=== PATIENT | female | born 1945 | race Caucasian/White ===

== ENCOUNTER 2025-01-16 17:27 | Inpatient (IN) | payer MEDICARE, SELFPAY ==
[2025-01-16] VITALS (13 sets, daily range): BP systolic 93–123; BP diastolic 48–71; PULSE 78–96; BMI 30.5; BMI 28.2
--- NOTE | 2025-01-16 13:15 | ED.GENMED ---
History of Present Illness
General
Chief Complaint: Abnormal Lab Value
Source: patient
Exam Limitations: none
Time Seen by Provider: 01/16/25 13:06
History of Present Illness
History of Present Illness:
79-year-old female presents with abnormal labs from her primary physician. She states she has felt weak and off for weeks if not longer. Also has had hematuria for about a week. No dysuria or frequency. No abdominal pain. No fever or chills.
Labs showed a significant drop in hemoglobin elevation in creatinine. She noted blood in her urine but not noted any rectal bleeding
Past History
Past History
ED Past Medical History: Arrthythmia, CAD, CHF, HTN and Hypercholesterolemia
ED Past Surgical History: Cardiac, Cholecystectomy and Orthopedic
Review of Systems
Review of Systems
All Other Systems: Not applicable
Constitutional: Denies fever or chills
Respiratory: Reports no symptoms
Cardiac: Reports no symptoms
Phy Exam
Physical Exam
Physical Exam:
GENERAL: Alert and oriented in no apparent distress
EYE: Orbits normal.
NECK: Supple
CARDIAC: Regular rate and rhythm without any obvious murmurs. Pacemaker
LUNGS: Clear breath sounds,normal
ABDOMEN: Soft, without focal tenderness or distention. Small amount of bright red blood around the rectal area. Stool is relatively brown but test positive.
NEUROLOGICAL: Alert and oriented , grossly non-focal
SKIN: Warm and dry, no rash or lesion, no discoloration, skin intact.
MUSCULOSKELETAL: No edema,no deformity.Good color
PSYCH: Normal and appropriate interaction.
Course
Orders/Labs/Results
Orders:
Orders
01/16/25 13:14
Electrocardiogram (*1) Stat
Reason for Study: Other
Other Reason for Exam: GI Bleed
CT Abd/pel Without Iv Or Oral Urgent
Comment:
Reason For Exam: Hematuria/renal failure
Cardiac Monitoring- Treatment ONCE
EKG- Treatment ONCE
IV Insert/Care/Rem.- Treatment PRN
01/16/25 13:31
Type+Screen Urgent
Complete Blood Count/With Diff Urgent
Comprehensive Metabolic Panel Urgent
Ferritin Urgent
Comment: ADD ON
Folate Urgent
Comment: ADD ON
Iron Urgent
Comment: ADD ON
Total Iron Binding Urgent
Comment: ADD ON
Vitamin B12 Urgent
Comment: ADD ON
01/16/25 14:41
Urinalysis Reflex To Culture Urgent
Date Specimen was Collected: 01/16/25
Time Specimen was Collected: 14:40
Urine Creatinine Urgent
Date Specimen was Collected: 01/16/25
Time Specimen was Collected: 14:40
Comment: ADD ON
Urine Sodium Urgent
Date Specimen was Collected: 01/16/25
Time Specimen was Collected: 14:40
Comment: ADD ON
01/16/25 Dinner
Clear Liquid
At Your Request: Full Participation
Does patient need a safe tray?: No
01/16/25 15:59
Pantoprazole [Protonix IV] 40 mg IV NOW STA
01/16/25 16:21
0.9% Sodium Chloride 500 ml [Nss] 500 ml IV BOLUS
01/16/25 16:47
Admit/Transfer Patient As Directed
Co-Sign Provider:
Level of Care: Inpatient admission
Assign to:: Telemetry
Physician / Group: Hospitalist
Diagnosis: Anemia/GI-bleed/MERYL
Reason for Telemetry: Arrhythmia
Date to Stop Telemetry: 01/19/25
Time to Stop Telemetry: 11:00
Reason for Hospitalization: Anemia/GI-bleed/MERYL
Expected length of stay greater than two midnights?: Yes
ELOS- Estimated Length of Stay in days: 3
I certify the patient meets the requirements for IP care: Yes
PRN Pain Medication Management As Directed
May give lesser potent ordered pain med per pt: Yes
preference::
Protocol:: Medication orders for pain may be administered in a
manner that supports deferring to patient preference
when the pt is:
- Requesting an ordered lesser potent pain medication.
Least to most potent pain medications are defined
as: acetaminophen < NSAID < tramadol < opioids
(morphine, oxycodone, hydromorphone).
- Requesting a lesser dose of the same medication IF
ORDERED.
- Requesting a less intrusive route of administration
if both routes are prescribed by the provider (PO <
IV).
01/16/25 17:00
Code Status As Directed
Resuscitation Status: Do not resuscitate
Reached after discussion with pt or family/Healthcare POA: Yes
DNR Bracelet Application ONCE
01/16/25 17:04
Add On- LAB Urgent
Tests Added?: TIBC, ferritin, iron saturation, B12, folate, urine Na, urine Cr
01/16/25 17:05
Blood Bank Products [* Blood Bank Products] Urgent
Blood Bank Products: *Packed RBC Leuko(PRBC's)
Quantity: 1
Transfuse Today: Yes
Reason: Anemia
01/16/25 19:21
0.9% Sodium Chloride 1000 ml [Nss] 1,000 ml IV 100 mls/hr
01/16/25 19:21
GASTROINTESTINAL CONSULT Routine
Consulting Provider: Chris Berry
Was physician already notified: Yes
Activity As Directed
Activity Level: Out of Bed-Early Mobility
INT (Intravenous Needle Therapy) As Directed
Comment: Place 2 IV catheters of the largest bore possible until stable
Orthostatic Vital Signs As Directed
Orthostatic VS Frequency: Now
Comment: then every four hours for twenty-four hours
Pneumatic Compression Sleeves As Directed
Type: Knee high
Vital Signs As Directed
Frequency: Per unit guidelines
DX Deep Vein Thrombosis Video Routine
01/16/25 20:00
Metoprolol Xl [Toprol Xl] 25 mg PO QPM
01/16/25 22:00
Amiodarone [Pacerone] 200 mg PO HS
Atorvastatin [Lipitor] 40 mg PO HS
Pantoprazole [Protonix IV] 40 mg IV BID
Ropinirole [Requip] 0.5 mg PO HS
01/17/25 04:13
Complete Blood Count/With Diff IN AM
Comprehensive Metabolic Panel IN AM
01/17/25 Breakfast
NPO
Allow oral meds: Yes
Allow clear liquids: Sips of Clears
01/17/25 08:00
Aspirin Low Dose EC [Aspir Low (Enteric Coated)] 81 mg PO DAILY
Calcium Carbonate/Vitamin D3 [Oscal 500 + D] 500 mg PO DAILY
Ezetimibe [Zetia] 10 mg PO DAILY
01/19/25 11:00
DC Protocol for Telemetry ONCE
Abnormal Lab Results
01/16/25 01/16/25
13:31 14:41
RBC 3.13 L 10^6/uL
(4.20-5.40)
Hgb 8.3 L g/dL
(12.0-16.0)
Hct 25.9 L %
(37.0-47.0)
MCH 26.5 L pg
(27.0-31.0)
MCHC 32.0 L g/dL
(33.0-37.0)
RDW 15.8 H %
(11.5-14.5)
MPV 10.7 H fL
(7.4-10.4)
Abs Immat Gran (auto) 0.1 H 10^3/uL
(0-0.05)
Absolute Lymphs (auto) 0.8 L 10^3/uL
(1.2-3.4)
Absolute Monos (auto) 0.9 H 10^3/uL
(0.1-0.6)
Immature Gran % 0.8 H %
(0-0.5)
Lymphocytes % 13.1 L %
(20.5-51.1)
Monocytes % 13.9 H %
(1.7-9.3)
BUN 62 H mg/dl
(7-17)
Creatinine 3.5 H mg/dL
(0.6-1.0)
Glucose 116 H mg/dl
(70-99)
Iron 25 L ug/dl
(37-170)
% Saturation 6 L %
(20-50)
Vitamin B12 > 1000 H pg/ml
(239-931)
Urine Glucose 2+ A
(Negative)
Crossmatch IS Only See Detail
01/16/25 13:31
01/16/25 13:31
Vital Signs
Initial and Last Documented VS:
Initial Vital Signs
Temp Pulse Resp BP Pulse Ox
98.1 F 98 20 104/65 98
01/16/25 12:05 01/16/25 12:05 01/16/25 12:05 01/16/25 12:05 01/16/25 12:05
Last Documented Vital Signs
Temp Pulse Resp BP Pulse Ox
98.5 F 72 18 108/57 95
01/17/25 03:54 01/17/25 04:55 01/17/25 03:54 01/17/25 04:55 01/17/25 03:54
MDM/Problems Addressed
Differential Diagnosis Includes:
Patient with anemia/new renal insufficiency. Describing hematuria. There may be a GI bleed also. Workup in progress.
*Radiology
Radiology exam reviewed: radiology read reviewed (No obstructing renal stone. No renal mass. Diverticulosis. Hiatal hernia. Bronchiectasis)
*Pulse Oximetry
SaO2: 98
Oxygen Mode of Delivery: Room air
Patient hypoxic: no
*EKG
Interpreted by ED Provider?: Yes
Interpretation: abnormal
Heart Rate: 77
Rate: normal
Rhythm: other
[place]: left axis deviation
QRS Pattern: wide non-specific
Ischemia: non-specific ST changes
*Critical Care Note
Total Time (30-74mins, 75-104mins- exclusive of procedures): Not Applicable
Data Reviewed
Review of Other/Old Records Reveals: Labs, Records and Testing
Update Note
Update Note:
Patient with GI bleed, new renal insufficiency. Inpatient management
ED Attending Note
-
Portions of this chart may have been created with voice recognition software.� Occasional wrong word or��sound alike� substitutions may have occurred due to the inherent limitations of voice recognition software.
Discharge Plan
Departure
Patient Disposition: Admit
Date of Disposition: 01/16/25
Time of Disposition: 16:20
Presentation/result/management discussed w/ accepting MD/DO: Hospitalist
Discharge Problem:
New onset early renal failure, Anemia/GI bleed
Interventions
Interventions:
*Risk Screen - Suicide Last Done: 01/16/25 20:47
*General Assessment Last Done: 01/16/25 12:05
*Neglect/Abuse Screening Last Done: 01/16/25 12:05
*ED- Fall Risk Assessment Last Done: 01/16/25 13:28
*ED COVID-19 Vaccine History Last Done: 01/16/25 13:28
*Nursing Disposition Last Done: 01/16/25 19:10
Discharge Date and Time
Discharge Date/Time: 01/16/25 19:10
[2025-01-16 14:01] LABS: Hematocrit 25.9 % (37.0-47.0); Hemoglobin 8.3 g/dL (12.0-16.0); Mean Corp Hgb Conc. 32.0 g/dL (33.0-37.0); Mean Corpuscular Volume 82.7 fL (81.0-99.0); Nucleated Red Blood Cells % 0 %; Platelet Count 343 10^3/uL (130-400); Red Cell Dist. Width 15.8 % (11.5-14.5)
[2025-01-16 14:24] LABS: ALT (SGPT) 28 U/L (0-35); AST (SGOT) 35 U/L (14-36); Albumin 4.3 g/dl (3.5-5.0); Alkaline Phosphatase 102 U/L (38-126); Blood Urea Nitrogen 62 mg/dl (7-17); Calcium 10.2 mg/dl (8.4-10.2); Carbon Dioxide 25 mmol/L (22-30); Chloride 100 mmol/L (98-107); Estimated Creatinine Clearance 14 ml/min; Glucose 116 mg/dl (70-99); Potassium 4.9 mmol/L (3.5-5.1); Sodium 136 mmol/L (135-145); Total Protein 7.4 g/dl (6.3-8.2); eGFR 12.67
[2025-01-16 15:01] LABS: Urine Character Clear (Clear)
[2025-01-16] MEDS: PROTONIX IV 40 MG IV ×2 (16:14→21:36)
[2025-01-16] MEDS: NSS 500 IV (16:25)
--- NOTE | 2025-01-16 16:41 | W.PN.UPDATE ---
Update Note
Progress Note Update
79-year-old female with HFpEF, CAD s/p PCI, AF on Eliquis s/p PVI, hypertension, dyslipidemia, CKD 3, AVB s/p PPM, H/O CVA presenting to the hospital today with abnormal labs. Symptomatically is complained of weakness, generalized for weeks, has
also reported hematuria for the last 1 week though denies any dysuria, frequency, abdomen pain, fevers or chills. Labs today showed a significant drop in hemoglobin as well as elevated creatinine. Denies any known rectal bleeding or melena. AFVSS
upon arrival. Labs with hemoglobin 8.3, creatinine 3.5. UA without blood or signs of infection. CT A/P without contrast with diverticulosis without signs of inflammation, moderate hiatal hernia, no signs of hydronephrosis. ECG without ischemic
findings, atrial paced rhythm. Was started on IV pantoprazole and given 500 mL of IV fluids in the ED. heme positive stool
AAO x 4, NAD. Benign cardiopulmonary exam. Nontender abdomen, normal bowel sounds, nondistended. No edema, palpable pulses. Skin is warm and dry, no rashes. No focal neurologic deficits
ABLA from likely GI source, possibly diverticular versus UGI source with elevated BUN. Symptomatic anemia. Heme positive stool. Hemoglobin baseline near 10-11, 8.5 on CBC in the ED. Started on IV PPI. Will continue with IV PPI twice daily for
now and consult GI for possible scope. Hold home Eliquis. Continue with aspirin as she had PCI but will discontinue if bleeding worsens or blood counts continue to drop. Order 1 unit PRBC now with type and crossmatch, blood consent. Continue to
trend CBC and transfuse for hemoglobin <7 or symptoms associated with anemia. Add on iron studies, B12 and folate, retake count to ED labs prior to blood transfusion
MERYL on CKD. Baseline creatinine near 1.5, likely CKD 3. Creatinine here 3.5. Suspect prerenal etiology with bleeding though cannot rule out intrinsic cause. No signs of hydronephrosis on CT. Add on urine sodium, urine creatinine to ED urine
sample to calculate FE(Na). Blood products as above, maintenance IV fluids. Trend BMP, hold home diuretics, avoid nephrotoxins.
Subjective gross hematuria. Question if this was actually from a GI source. UA here without any signs of gross or microscopic hematuria. Will continue to monitor and consider urology consult if gross hematuria recurrent
Allergies. Had anaphylactic-like response to iodinated CT contrast in the past, cough response with YVETTE inhibitors. Also with anaphylaxis to shellfish. Avoid the substances, EpiPen if needed
Clear liquid diet, n.p.o. at midnight
SCDs
I will be admitting Samaria Boyle to telemetry. She is at high risk for worsening morbidity due to blood loss anemia and renal insufficiency. She will require intensive monitoring of her BMP and CBC, readjustment of her anticoagulation regimen,
and possible intervention by GI. I have discussed this case with the ED attending and the bottle hop. I have also reviewed the case with the resident and agree with all documentation unless otherwise specified.
Please refer to resident H&P for more detail if needed
--- NOTE | 2025-01-16 17:10 | HPS.HSE ---
Family Physician
-
Family Physician: Ayaka Paz
Chief Complaint
-
lightheadedness, blood in toilet
History of Present Illness
79 yo F PMH atrial fibrillation, CAD s/p stents, CHF, HTN, HLD, and b/l hip replacements who is presenting with lightheadedness, dizziness, dyspnea on exertion for 1 week duration.
She also reports blood in stool. She denies chest pain, palpitation, or lower extremity swelling. She denies any new medications or changes in medications.
She went to an outpatient visit yesterday and was told that her lab values were abnormal and advised to present to ER.
In the ED, initial VS were afebrile, HR 98, RR 20, BP 104/65, and 98% on RA. EKG showed atrial paced rhythm. CT AP noncontrast showed diverticulosis without diverticulitis, no renal calculus, no obstruction.
Labs n/f BUN 62 and Cr 3.5. In the ED, hemeoccult stool testing was positive.
Last echo per our records is in 2016 with EF 50%. She principally follows at [facility].
Medical History
Past Medical History
Past Medical History: Reports Arrhythmia, CAD, CHF, HTN and Hypercholesterolemia
Past Surgical History: Reports Orthopedic (b/l hip replacement)
Social History
Tobacco: Non-smoker
Alcohol: None
Drug: None
Family History
Family History: Not pertinent
Allergies / Home Medications
Allergies reflects when Allergies were last updated in [employer].
Home Medications with original date entered in [employer]
Allergy/Medication List:
Allergies
Allergy/AdvReac Type Severity Reaction Status Date / Time
YVETTE Inhibitors Allergy cough Verified 01/16/25 12:10
acetaminophen (From Allergy Unknown Verified 01/16/25 12:10
Darvocet-N)
duloxetine HCl (From Allergy Unknown Verified 01/16/25 12:10
Cymbalta)
Iodinated Contrast Media Allergy throat Verified 01/16/25 12:10
(Iodinated Contrast Media - closing
IV Dye)
latex Allergy Rash Verified 01/16/25 12:10
oxycodone Allergy hallucinati Verified 01/16/25 12:10
ons
penicillin V potassium (From Allergy Unknown Verified 01/16/25 12:10
Pen-Vee K)
pregabalin (From Lyrica) Allergy Unknown Verified 01/16/25 12:10
propoxyphene napsylate (From Allergy Unknown Verified 01/16/25 12:10
Darvocet-N)
shellfish derived Allergy Anaphylaxis Verified 01/16/25 12:10
Home Medications
ascorbic acid (vitamin C) 500 mg tablet (Vitamin C) 500 mg PO DAILY 07/21/15
atorvastatin 40 mg tablet 40 mg PO HS 07/21/15
omega 3-ynn-dzo-fish oil 250 mg-500 mg-1,000 mg capsule 1 cap PO DAILY 07/21/15
metoprolol succinate 25 mg tablet,extended release 24 hr 25 mg PO QPM 02/23/16
apixaban 5 mg tablet (Eliquis) 5 mg PO BID ##1 03/28/16
amiodarone 200 mg tablet 200 mg PO HS 01/16/25
aspirin 81 mg tablet,delayed release 81 mg PO DAILY 01/16/25
calcium 500 mg (as carbonate)-vitamin D3 10 mcg (400 unit) tablet (Calcium 500 + D) 1 tab PO DAILY 01/16/25
cyanocobalamin (vitamin B-12) 1,000 mcg tablet 1,000 mcg PO DAILY 01/16/25
empagliflozin 10 mg tablet (Jardiance) 10 mg PO DAILY 01/16/25
ezetimibe 10 mg tablet (Zetia) 10 mg PO DAILY 01/16/25
furosemide 40 mg tablet (Lasix) 40 mg PO DAILY 01/16/25
ropinirole 0.5 mg tablet 0.5 mg PO HS 01/16/25
spironolactone 25 mg tablet 25 mg PO QPM 01/16/25
Review of Systems
-
History Source: Patient
Constitutional: Reports Fatigue
EENT: Reports No Symptoms
Respiratory: Reports No Symptoms
Cardiac: Reports No Symptoms
Abdomen/GI: Reports Bloody Stools
: Reports No Symptoms
Musculoskeletal: Reports No Symptoms
Skin: Reports No Symptoms
Neurological: Reports Dizzy
Physical Exam
Vital Signs
Vital Signs
Temp Pulse Resp BP Pulse Ox
98.1 F 77 16 104/65 98
01/16/25 12:05 01/16/25 14:15 01/16/25 14:15 01/16/25 12:05 01/16/25 13:18
Physical Exam
General: Comfortable
HEENT: NormoCephalic
Respiratory: Clear
Cardiac: Regular Rhythm and Other (no murmurs on my exam)
GI: Soft and Non Tender
Rectal: Hem Positive
Musculoskeletal: No Edema
Skin: Warm
Neuro: AO x 3 and Nonfocal/grossly intact
Psych: Calm
Laboratory Results
-
01/16/25 13:31
01/16/25 13:31
Laboratory Results
Total Bilirubin 1.3 mg/dl (0.2-1.3) 01/16/25 13:31
AST 35 U/L (14-36) 01/16/25 13:31
ALT 28 U/L (0-35) 01/16/25 13:31
Alkaline Phosphatase 102 U/L (38-126) 01/16/25 13:31
EKG: atrial paced rhythm
CT AP noncontrast:
IMPRESSION:
Pelvic assessment limited by dense streak artifact as a result of bilateral hip replacements. Consider further evaluation with ultrasound.
No renal calculus or hydronephrosis to indicate obstructive uropathy. No suspicious renal mass identified given limitations from lack of intravenous contrast.
Minor diverticulosis without acute diverticulitis. No bowel obstruction.
Moderate hiatal hernia. Peribronchial thickening and traction bronchiectasis at the lung bases. Progressive left atrial enlargement.
UA: 2+ glucose, negative for blood, negative albumin
[facility] medical records:
received 01/16/2025 AM from [facility] for labs on 01/15/2025
Hemoglobin: 7.9
BUN 63
Creatinine 3.95
Impression/Plan
-
In summary, this is 79 yo F p/w lightheadedness, dizziness, blood in stool for 1 week duration and found to be hemeoccult positive.
# Symptomatic anemia
# GI bleed
- dizziness, lightheadedness for 1 week duration with hemeoccult positive c/f GI bleed
- VS are within normal limits; HR in 70-90s; possible metoprolol succinate masking tachycardia
- Hgb 8.3 with symptoms
- the ddx for gi bleed is broad and includes several etiologies: diveritular bleed, angiodysplaisa, gastritis, ulcer bleed, colorectal malignancy
Plan:
- ensure adequate IV access x2
- IV fluids NS 100cc/hr
- type and cross
- transfuse 1u pRBC
- add on iron studies, b12, folate
- IV pantoprazole 40mg bid
- hold apixaban, continue aspirin 81mg
- diet: CLD npo @ midnight
- GI has been consulted for possible EGD and/or colonoscopy
- monitor VS, trend CBC
# MEYRL
- Cr 3.5
- BUN 62
- unclear creatinine baseline, potentially some element of CKD
- UA negative for blood
- likely etiology is multifactorial: prerenal with combination of GI bleed and dehydration/poor PO intake
Plan:
- IV fluids NS 100cc/hr and 1 unit pRBCs as above
- hold diuretics: SGLT2i, furosemide, spironolactone
- add on urine sodium, urine creatinine
- monitor BMP
# Chronic issues per below
# atrial fibrillation - holding apixaban as above; continue metoprolol succinate, continue amiodarone
# CAD - continue aspirin 81mg
# CHF, unclear type: holding diuretics as above
# HTN - holding diuretics as above
# HLD - continue atorvastatin
# restless leg syndrome - continue ropinorole
Diet: CLD, npo @ midnight
Code status: DNR
DVT ppx: SCDs
Disposition: admit to telemetry, pending further workup; attempt to access outside hospital medical records
--- NOTE | 2025-01-16 17:46 | EDRN ---
Resident Bianca messaged regarding need for blood consent. Blood ready at this time. RN unable to request blood as we yet do not have a consent.
[2025-01-16 17:56] LABS: Iron 25 ug/dl (37-170)
[2025-01-16 18:06] LABS: Total Iron Binding Capacity 393 ug/dl (265-497)
--- NOTE | 2025-01-16 18:12 | EDRN ---
Pt states that did come and have her sign a paper, and he would have it 'scanned in.' No consent on chart as of yet, unable to request blood.
[2025-01-16 18:33] LABS: Ferritin 15.7 ng/ml (11.1-264.0)
[2025-01-16 19:04] LABS: Folate 12.6 ng/ml (2.76-20); Vitamin B12 > 1000 pg/ml (239-931)
[2025-01-16] MEDS: TOPROL XL 25 MG PO (20:14)
[2025-01-16] MEDS: NSS 1000 IV (20:15)
[2025-01-16] MEDS: NSS (PRESERVATIVE FREE) 10 ML IV (21:36)
[2025-01-16] MEDS: REQUIP 0.5 MG PO (21:36)
[2025-01-16] MEDS: PACERONE 200 MG PO (21:38)
[2025-01-16] MEDS: LIPITOR 40 MG PO (21:41)
[2025-01-17] VITALS (12 sets, daily range): BP systolic 97–155; BP diastolic 47–79; PULSE 74–86
[2025-01-17 01:38] LABS: Hematocrit 26.3 % (37.0-47.0); Hemoglobin 8.4 g/dL (12.0-16.0)
--- NOTE | 2025-01-17 04:01 | W.PN.UPDATE ---
Update Note
Progress Note Update
-Patient had hematuria during the night, asymptomatic, bp 108/57, hr 72, RR 18, temp 98.5, SPO2 95% RA.
-Stat hgb is 8.3 previously 8.4 will continue monitoring h&h q 6hrs and transfuse as needed.
-Will hold aspirin.
-urology consult.
-Will maintain IVF
[2025-01-17 04:29] LABS: Hematocrit 25.7 % (37.0-47.0); Hemoglobin 8.3 g/dL (12.0-16.0)
[2025-01-17 04:35] LABS: Hematocrit 25.4 % (37.0-47.0); Hemoglobin 8.3 g/dL (12.0-16.0); Mean Corp Hgb Conc. 32.7 g/dL (33.0-37.0); Mean Corpuscular Volume 83.3 fL (81.0-99.0); Nucleated Red Blood Cells % 0 %; Platelet Count 273 10^3/uL (130-400); Red Cell Dist. Width 15.4 % (11.5-14.5)
[2025-01-17 04:53] LABS: ALT (SGPT) 24 U/L (0-35); AST (SGOT) 30 U/L (14-36); Albumin 3.4 g/dl (3.5-5.0); Alkaline Phosphatase 80 U/L (38-126); Blood Urea Nitrogen 56 mg/dl (7-17); Calcium 8.8 mg/dl (8.4-10.2); Carbon Dioxide 24 mmol/L (22-30); Chloride 109 mmol/L (98-107); Estimated Creatinine Clearance 17 ml/min; Glucose 98 mg/dl (70-99); Potassium 4.7 mmol/L (3.5-5.1); Sodium 138 mmol/L (135-145); Total Protein 6.0 g/dl (6.3-8.2); eGFR 17.29
--- NOTE | 2025-01-17 04:56 | PTCARENOTE ---
0400 Pt noted to have 500cc of Bloody urine. VS are followed T 98.5 HR 79 RR 18 BP 100/51 95% RA. Pt asymptomatic, with no complains of pain. YANELI Quiroz notified and was present to assess the patient, orders were placed, stat H&H and
Urology Consult added. Plan of care ongoing.
[2025-01-17] MEDS: NSS 1000 IV ×2 (05:54→17:25)
[2025-01-17 06:20] LABS: Glucose - Point of Care 102 mg/dl (70-99)
--- NOTE | 2025-01-17 07:14 | W.PN.HOSP.TC ---
Today's Communication/Plan
-
- f/u GI and urology recs
- monitor H&H
- tello cathter inserted
- continue IV fluids NS 100cc/hr
Assessment / Plan
Assessment / Plan
In summary, 79 yo F who is presenting with hemeoccult positive stool, hematuria, and symptomatic anemia.
# Symptomatic anemia
# Likely acute blood loss anemia
# Likely iron deficiency anemia
- dizziness, lightheadedness for 1 week duration with hemeoccult positive c/f GI bleed, and now hematuria
- VS are within normal limits; HR in 70-90s; possible metoprolol succinate masking tachycardia
- Hgb 8.4 even after 1u pRBC
- 01/17 10am hemoglobin 7.8
- etiology could be gi bleed and hematuria or combination of both
- iron studies c/w iron deficiency anemia (low ferritin, low iron, borderline low MCV); B12, folate normal
Plan:
- ensure adequate IV access x2
- continue IV fluids NS 100cc/hr
- transfuse 1 more unit pRBC; if c/f volume overload after transfusion, consider diuresis
- administer IV iron
- IV pantoprazole 40mg bid
- hold apixaban, aspirin is being held per overnight
- monitor VS, trend H&H
# GI bleed
- reported heme positive stool test per ED
- the overnight reports of hematuria are likely spillover from GI bleeding
- per urology exam, + blood in rectal vault
- the ddx for gi bleed is broad and includes several etiologies: diveritular bleed, angiodysplaisa, gastritis, ulcer bleed, colorectal malignancy
Plan:
- ensure adequate IV access x2
- continue IV fluids NS 100cc/hr
- monitor H&H
- GI has been consulted for possible EGD and/or colonoscopy
# MERYL
- Cr 2.7 from 3.5
- BUN 56 from 62
- unclear creatinine baseline, potentially some element of CKD
- UA negative for blood
- likely etiology is multifactorial: prerenal with combination of GI bleed and dehydration/poor PO intake
- FeNa 3.8% points towards intrinsic renal pathology however can be confounded by fluids administration.
Plan:
- IV fluids NS 100cc/hr
- hold diuretics: SGLT2i, furosemide, spironolactone
- tello catheter has been inserted, f/u UA+culture
- monitor BMP
# Chronic issues per below
# atrial fibrillation - holding apixaban as above; continue metoprolol succinate, continue amiodarone
# CAD - currently holding aspirin 81mg
# CHF, unclear type: holding diuretics as above
# HTN - holding diuretics as above
# HLD - continue atorvastatin
# restless leg syndrome - continue ropinorole
Diet: NPO
Code status: DNR
DVT ppx: SCDs
Disposition: pending further workup
Anticipated Discharge: > 48 hours
Subjective/Interval History
-
Date of Service: January 17, 2025
received a unit pRBC yesterday evening
overnight, hematuria was noted; however, we believe that this was spillover bleeding from GI bleed. VSS.
UA in ER was negative for blood
Hgb 8.3 from 8.4
aspirin was held
urology consulted
ER doc note does state heme positive stool test
This morning patient endorses that she's had hematuria for 1 week but yesterday in ER was the one time she did not have blood in urine.
Otherwise, she is doing okay, denies palpitations, dizziness, lightheadedness, chest pain
Objective Data
-
Labs:
Laboratory Results
01/17/25 01/17/25 01/17/25
01:20 04:13 04:13
WBC 5.6
Hgb 8.4 L 8.3 L 8.3 L
Hct 26.3 L 25.4 L
Plt Count
Sodium
Potassium
Chloride
Carbon Dioxide
BUN
Creatinine
Glucose
Calcium
Total Bilirubin
AST
ALT
Alkaline Phosphatase
01/17/25 01/17/25 01/17/25
04:13 10:00 16:00
WBC
Hgb Pending Pending
Hct 25.7 L Pending Pending
Plt Count 273 D
Sodium 138
Potassium 4.7
Chloride 109 H
Carbon Dioxide 24
BUN 56 H
Creatinine 2.7 H
Glucose 98
Calcium 8.8
Total Bilirubin 2.5 H D
AST 30
ALT 24
Alkaline Phosphatase 80
01/17/25
22:00
WBC
Hgb Pending
Hct Pending
Plt Count
Sodium
Potassium
Chloride
Carbon Dioxide
BUN
Creatinine
Glucose
Calcium
Total Bilirubin
AST
ALT
Alkaline Phosphatase
Cr 2.7 from 3.5
Iron 25
TIBC 393
Ferritin 15
MCV 83.3
B12 1000
Folate 12.6
urine cr 41
urine Na 61
serum cr 3.5
serum 136
Fena 3.8% per mdcalc
Vital Signs:
Vital Signs
Temp Pulse Resp BP Pulse Ox
98.5 F 72 18 108/57 95
01/17/25 03:54 01/17/25 04:55 01/17/25 03:54 01/17/25 04:55 01/17/25 03:54
I&O
01/16/25 01/17/25 01/18/25
06:59 06:59 06:59
Intake Total 2210 / 2210
Output Total 500 / 500
Balance 1710 / 1710
Review of Systems
-
History Source: Patient
Constitutional: Reports No Symptoms
EENT: Reports No Symptoms Reported
Respiratory: Reports No Symptoms
Cardiac: Reports No Symptoms
Abdomen/GI: Reports No Symptoms
Genitourinary: Reports Bleeding
Musculoskeletal: Reports No Symptoms
Skin: Reports No Symptoms
Neuro: Reports No Symptoms
Physical Exam
-
General: No Apparent Distress
HEENT: Normocephalic and Atraumatic
Respiratory: Clear to Auscultation
Cardiac: Regular Rhythm and Other (no murmurs)
GI: Soft, Nontender and Normal Bowel Sounds
Genito-urinary: Other (no suprapubic tenderness; no costovertebral tenderness)
Musculoskeletal: No Edema
Skin: Warm
Neuro: Awake and Alert
Psych: Calm
[2025-01-17] MEDS: NSS (PRESERVATIVE FREE) 10 ML IV ×2 (08:12→20:47)
[2025-01-17] MEDS: PROTONIX IV 40 MG IV ×2 (08:12→20:46)
[2025-01-17] MEDS: ZETIA 10 MG PO (08:12)
[2025-01-17] MEDS: OSCAL 500 + D 500 MG PO (08:12)
--- NOTE | 2025-01-17 09:01 | CON.MD ---
Consultation - Medical
-
see dictated note
pt with [facility] at [facility]
denies prior gu hx
reports blood in toilet for a while- think combo of bladder and rectum
no dysuria or flank pain
ua in ER negative
CT can without contrast unremarkable from gu standpoint
pt and nurses reported sig hematuria overnight
on exam- no vag mass or prolapse + blood in rectal vault
tello placed- urine yellow- irrigated
plan
review with med team
repeat urine from tello for ua and cx
leave tello to monitor for hematuria over next 24-48hrs
gi eval
NOTE- after tello placement- pt reported latex allergy- cath exchanged promptly for non-latex
Consultation
-
Date/Time Consultation Requested: 01/16/25 at 8am
Date/Time Consultation Performed: 01/16/25 at 9am
Requesting Provider: dr almanzar
Performing Provider: dr thomas
Reason for Consultation: hematuria
[2025-01-17 09:32] LABS: Glucose - Point of Care 111 mg/dl (70-99)
[2025-01-17 10:06] LABS: Urine Character Clear (Clear)
[2025-01-17 10:24] LABS: Hematocrit 24.2 % (37.0-47.0); Hemoglobin 7.8 g/dL (12.0-16.0)
[2025-01-17 11:31] LABS: Urine Red Blood Cell 0-2 /HPF (0-2); Urine Squamous Cell None seen /LPF (Few); Urine White Cell 0-2 /HPF (0-5)
--- NOTE | 2025-01-17 12:11 | CON.GI ---
Addendum entered and electronically signed by Chris Berry MD 01/17/25 16:13:
I saw and evaluated the patient. I reviewed the resident�s note and agree with findings and plan as documented in the resident�s note.
79 year old female who noted isolated bleeding couple months ago ?with urination, then more recently has had multiple episodes of blood noted in the toilet. She thought it was with urination, but Urology straight cathed her today and noted no
bleeding. Rectal exam found red blood. She reports regular BMs, brown. Hgb on admission 8.3. Rec'd 1 unit PRBC. She has had regular colonoscopy every 5 years due to FH CRC- mother. They have been normal, last was about 6-7 years ago. She had
EGD 10-20 years ago for reflux, normal. Denies dysphagia, early satiety. She gets occasional reflux. She is on eliquis for afib, last dose yesterday AM. Also noted ARF on admission Cr 3.5, BUN 62.
REC:
Will prep for colonoscopy tomorrow
Cont to hold eliquis for now
Follow Hgb
I do not believe she needs EGD at this time, unlikely UGIB with brown stool.
Original Note:
Medical History
Chief Complaint / HPI
Chief Complaint: Hematuria
History of Present Illness:
Samaria Boyle is a 79F with PMHx, GERD, CAD and AF on Eliquis who is presenting with abnormal labs and hematuria x 1 week. Patient was seen by her PCP who noted Hb 8.3 and Cr 3.5 prompting a referral to the ED to evaluate for possible renal failure.
Upon arrival to the ED, patient endorsed that she had been feeling fatigued for weeks.
Patient states her history of hematuria began in September when she one episode of blood in the toilet bowl after urinating. She did not think much of it because it was only one episode that completely subsided. She then endorses that approximately 1
month ago, she started to notice blood in the toilet bowel more intermittently but not daily. She notes that 1 week ago, there was an increase in frequency and she was noticing blood in the toilet approx 7-8 times per day. The patient denies that
these episodes are associated with abdominal pain, flank pain, n/v/d, constipation, painful urination, burning urination, foul smelling urine, rectal bleeding, or melena. Additionally she denies any changes to stool caliber or consistency. She does
note that she occasionally has epigastric pain, and suffers from reflux. The epigastric pain is relieved by eating.
Patient states that the blood in the toilet is only with urination. She will defecate, but even though she urinates at the same time, she will not notice blood in the toilet bowl when she defecates, only when she solely urinates.
Past Medical History
Past Medical History: Other (HFpEF, CAD s/p PCI, AF on Eliquis s/p PVI, hypertension, dyslipidemia, CKD 3, AVB s/p PPM, H/O CVA)
Past Surgical History: Orthopedic and Other (denies gastrointestinal surgeries )
Social History
Tobacco: Non-Smoker
Alcohol: None
Drug: None
Personal:
Living: With Family
Family History
Family History: Other (Mother Colon CA dx in 80s. Otherwise denies FHx of gastrointestinal cancers, denies Fhx of liver disease, denies FHx of IBD, denies FHX of bleeding disorders )
Allergies / Home Medications
Allergy/AdvReac Type Severity Reaction Status Date / Time
YVETTE Inhibitors Allergy cough Verified 01/16/25 12:10
acetaminophen (From Allergy Unknown Verified 01/16/25 12:10
Darvocet-N)
duloxetine HCl (From Allergy Unknown Verified 01/16/25 12:10
Cymbalta)
Iodinated Contrast Media Allergy throat Verified 01/16/25 12:10
(Iodinated Contrast Media - closing
IV Dye)
latex Allergy Rash Verified 01/16/25 12:10
oxycodone Allergy hallucinati Verified 01/16/25 12:10
ons
penicillin V potassium (From Allergy Unknown Verified 01/16/25 12:10
Pen-Vee K)
pregabalin (From Lyrica) Allergy Unknown Verified 01/16/25 12:10
propoxyphene napsylate (From Allergy Unknown Verified 01/16/25 12:10
Darvocet-N)
shellfish derived Allergy Anaphylaxis Verified 01/16/25 12:10
�Medication �Instructions �Recorded
ascorbic acid (vitamin C) 500 mg 500 mg PO DAILY 07/21/15
tablet (Vitamin C)
atorvastatin 40 mg tablet 40 mg PO HS 07/21/15
omega 4-sjp-upj-fish oil 250 1 cap PO DAILY 07/21/15
mg-500 mg-1,000 mg capsule
metoprolol succinate 25 mg 25 mg PO QPM 02/23/16
tablet,extended release 24 hr
apixaban 5 mg tablet (Eliquis) 5 mg PO BID ##1 03/28/16
amiodarone 200 mg tablet 200 mg PO HS 01/16/25
aspirin 81 mg tablet,delayed 81 mg PO DAILY 01/16/25
release
calcium 500 mg (as 1 tab PO DAILY 01/16/25
carbonate)-vitamin D3 10 mcg (400
unit) tablet (Calcium 500 + D)
cyanocobalamin (vitamin B-12) 1,000 mcg PO DAILY 01/16/25
1,000 mcg tablet
empagliflozin 10 mg tablet 10 mg PO DAILY 01/16/25
(Jardiance)
ezetimibe 10 mg tablet (Zetia) 10 mg PO DAILY 01/16/25
furosemide 40 mg tablet (Lasix) 40 mg PO DAILY 01/16/25
spironolactone 25 mg tablet 25 mg PO QPM 01/16/25
atorvastatin 40 mg tablet (Lipitor) 40 mg PO DAILY 01/17/25
oxybutynin chloride 5 mg tablet 5 mg PO DAILY 01/17/25
pantoprazole 40 mg tablet,delayed 40 mg PO BID 01/17/25
release
pregabalin 25 mg capsule 25 mg PO BID 01/17/25
Review of Systems
-
History Source: Patient
All other systems: A 12 pt ROS was Negative except as stated above in HPI
Vital Signs
Temp Pulse Resp BP Pulse Ox
98 F 80 18 98/55 95
01/17/25 08:13 01/17/25 08:13 01/17/25 08:13 01/17/25 08:13 01/17/25 03:54
Physical Exam
Exam
General: No Apparent Distress and Comfortable
HEENT: Normocephalic and Anicteric
Respiratory: Clear
GI: Soft, Non Tender, Non Distended and Normal Bowel Sounds
Skin: Warm
Neuro: Awake
Psych: Calm
Results
WBC 5.6 10^3/uL (4.8-10.8) 01/17/25 04:13
Hgb 7.8 g/dL (12.0-16.0) L 01/17/25 10:07
Hct 24.2 % (37.0-47.0) L 01/17/25 10:07
MCV 83.3 fL (81.0-99.0) 01/17/25 04:13
Plt Count 273 10^3/uL (130-400) D 01/17/25 04:13
Absolute Neuts (auto) 3.4 10^3/uL (1.4-6.5) 01/17/25 04:13
Sodium 138 mmol/L (135-145) 01/17/25 04:13
Potassium 4.7 mmol/L (3.5-5.1) 01/17/25 04:13
Chloride 109 mmol/L (98-107) H 01/17/25 04:13
Carbon Dioxide 24 mmol/L (22-30) 01/17/25 04:13
BUN 56 mg/dl (7-17) H 01/17/25 04:13
Creatinine 2.7 mg/dL (0.6-1.0) H 01/17/25 04:13
Calcium 8.8 mg/dl (8.4-10.2) 01/17/25 04:13
Total Bilirubin 2.5 mg/dl (0.2-1.3) H D 01/17/25 04:13
AST 30 U/L (14-36) 01/17/25 04:13
ALT 24 U/L (0-35) 01/17/25 04:13
Alkaline Phosphatase 80 U/L (38-126) 01/17/25 04:13
Diagnostic Image Results:
CT ABd/Pelv w/o IV or oral 01/16/25
Pelvic assessment limited by dense streak artifact as a result of bilateral hip replacements. Consider further evaluation with ultrasound.
No renal calculus or hydronephrosis to indicate obstructive uropathy. No suspicious renal mass identified given limitations from lack of intravenous contrast.
Minor diverticulosis without acute diverticulitis. No bowel obstruction.
Moderate hiatal hernia. Peribronchial thickening and traction bronchiectasis at the lung bases. Progressive left atrial enlargement.
EGD: endorses a distant history to work up GERD.
Colonoscopy: self-reported, last colonoscopy 3 years ago, normal.
GI: Dr. Dunbar
Assessment / Plan
-
Samaria Boyle is a 79F with a PMHx of CAD s/p PCI and A/fib on chronic anticoagulation with Eliquis, GERD, and family history of colon cancer who is presenting with elevated creatinine, acute blood loss anemia and blood in the toilet bowel, worse
over the past 1 week. The patient initially arrived with a Hb of 8.3. CT showed evidence of diverticulosis without hydronephrosis. Further evaluation has revealed no blood in the urine both in straight UA and UA s/p tello catheter, as well as heme
positive stools. We were consulted to evaluate for GI sources of bleeding.
- Continue to monitor for bleeding per rectum
- Serial H/H
- PPI IV BID
- Patient would benefit from bidirectional endoscopy to evaluate for sources of GI bleeding
DDx includes: diverticular bleed, hemorrhoids, AVMs, malignancy, or brisk upper GI bleed 2/2 PUD or gastritis
Total Time Spent with Patient (in minutes): 40
-
-
Thank you for consultation and allowing me to participate in the patient's care. Please call the supervisor offset plate preparation GI physician during the after hours with any questions or concerns.
[2025-01-17] MEDS: FERRLECIT 110 MG IV (13:58)
--- NOTE | 2025-01-17 16:39 | CM ---
Initial assessment completed with patient with in room. Patient lives with her in a 1 story plus basement home with 2 steps to enter. NOTCHER patient was independent in ADL's and ambulation. She does drive. She has a RW, quad cane and
w/ch at home. She uses the RW or quad cane when out of the home. No in-home services. Does have HC-POA. No VA benefits. No psychiatric ospitalizations. PCP is Dr. Ayaka Paz. [facility]acy is [facility] in [place]. Discharge POC: Awaiting therapy
evaluation.
[2025-01-17] MEDS: NULYTELY SOLUTION 4 LITERS PO (17:14)
[2025-01-17] MEDS: TOPROL XL 25 MG PO (17:25)
[2025-01-17] MEDS: FLUSH (NSS) 1 FLUSH IV (20:47)
[2025-01-17 22:08] LABS: Hematocrit 27.4 % (37.0-47.0); Hemoglobin 9.1 g/dL (12.0-16.0)
[2025-01-17] MEDS: LIPITOR 40 MG PO (23:26)
[2025-01-17] MEDS: PACERONE 200 MG PO (23:26)
[2025-01-17] MEDS: REQUIP PO (23:40)
[2025-01-18 03:28] VITALS: BP 108/53
[2025-01-18] MEDS: NSS 1000 IV (04:25)
--- NOTE | 2025-01-18 05:33 | PTCARENOTE ---
Addendum entered by Daria De Jesus RN 01/18/25 06:39:
Pt c/o SOB on rest/exertion.SPO2-91-96 on RA. [employer]IST[employer] fire information officer was made aware of it. Aware of pt lasix on hold & creatinine level.Pt NPo from [place]. AM labs were ordered,Pro BNP. pt repeat hgb-9.1 last night. Pt IV fluids on hold at this time. No other
orders noted.Plan of care continued.
Original Note:
Pt aaox3 able to make her needs known.Denies pain.Pt on golytely prep refusing to drink 3 more cups left. [employer]IST[employer] fire information officer made aware of it.Pt stools at this time are clear liquidy yellow with small amount of stool. Plan of care continued.Pt NPO at [place].
[2025-01-18 06:00] VITALS: BMI 29.3
--- NOTE | 2025-01-18 06:43 | W.PN.UPDATE ---
Update Note
Progress Note Update
RN reporting pt c/o SOB this morning. Has hx of CHF. Has been getting IVF, received blood transfusion, and also took in all but 3 cups of colonoscopy prep.LAsix has been on hold for MERYL.
Will hold ivf for now, check BNP now (last one was 1435 october 2024 at outside facility).
Consider small dose lasix x1
Check CXR
[2025-01-18 06:47] LABS: Hematocrit 29.0 % (37.0-47.0); Hemoglobin 9.3 g/dL (12.0-16.0); Mean Corp Hgb Conc. 32.1 g/dL (33.0-37.0); Mean Corpuscular Volume 86.1 fL (81.0-99.0); Nucleated Red Blood Cells % 0 %; Platelet Count 281 10^3/uL (130-400); Red Cell Dist. Width 15.5 % (11.5-14.5)
[2025-01-18 07:04] VITALS: BP 126/66
--- NOTE | 2025-01-18 07:19 | W.PN.HOSP.TC ---
Today's Communication/Plan
-
- supplemental oxygen for respiratory distress
- diuresis once with lasix, f/u PM BMP
- US lower extremity bilaterally
- f/u GI recs; colonoscopy deferred to 01/19
- f/u cardiology recs
- monitor VS, CBC
Assessment / Plan
Assessment / Plan
In summary, 79 yo F who is presenting with hemeoccult positive stool, hematuria, and symptomatic anemia.
# Symptomatic anemia
# acute blood loss anemia
# iron deficiency anemia
- dizziness, lightheadedness for 1 week duration with hemeoccult positive c/f GI bleed, and now hematuria
- VS are within normal limits; HR in 70-90s; possible metoprolol succinate masking tachycardia
- Hgb 9.3 this morning
- iron studies c/w iron deficiency anemia (low ferritin, low iron, borderline low MCV); received IV iron 01/17; B12, folate normal
Plan:
- ensure adequate IV access x2
- disconintue IV fluids for now for respiratory distress (see below)
- IV pantoprazole 40mg bid
- hold apixaban, aspirin is being held
- monitor VS, trend CBC
# acute on chronic HF exacerbation (unclear type)
- dyspnea this morning and orthopnea, requiring 2 pillows behind back
- received 1u PRBC and fluids yesterday given ongoing GI bleeding and anemia
- CXR this morning showed bilateral pulmonary interstial opacities concerning for pulmonary edema
- proBNP 3660 support an acute exacerbation of heart failure
- D-dimer is elevated; however she is 79 yo, creatinine at 1.8
- anticoagulation is SCDs and exam showed calf tenderness bilaterally
- however bilateral DVTs are unlikely; nonetheless willl be worked up with US of lower extremities
- there may also be some element of anxiety contributing
Plan:
- lasix 20mg IV once
- f/u PM BMP
- discontinue fluids for now
- supplemental oxygenation to maintain SpO2 > 92%
- Lower extremity US b/l to evalute calf tenderness
- diazepam 2mg IV once and tigan IM once for anxiety and nausea given
- cardiology consulted
# GI bleed
- reported heme positive stool test per ED
- reports of hematuria are likely spillover from GI bleeding
- per urology exam, + blood in rectal vault
- the ddx for gi bleed is broad and includes several etiologies: diveritular bleed, angiodysplaisa, gastritis, ulcer bleed, colorectal malignancy
Plan:
- ensure adequate IV access x2
- monitor CBC
- GI is following; colonosocpy deferred to 01/19 given respiratory distress this morning
# MERYL
- Cr 1.8 from 2.7 from 3.5
- BUN 30 from 56 from 62
- unclear creatinine baseline, potentially some element of CKD
- UA negative for blood
- urine cultuer no growht
- likely etiology is multifactorial: prerenal with combination of GI bleed and dehydration/poor PO intake
Plan:
- discontinue IV fluids for now given respiratory distress
- hold diuretics: SGLT2i, furosemide, spironolactone
- tello catheter has been inserted
- monitor BMP
# Chronic issues per below
# atrial fibrillation - holding apixaban as above; continue metoprolol succinate, continue amiodarone
# CAD - currently holding aspirin 81mg
# CHF, unclear type: holding diuretics as above
# HTN - holding diuretics as above
# HLD - continue atorvastatin
# restless leg syndrome - continue ropinorole
Diet: NPO
Code status: DNR
DVT ppx: SCDs
Disposition: pending further workup
Anticipated Discharge: > 48 hours
Subjective/Interval History
-
Date of Service: January 18, 2025
shortness of breath this morning
received 1 u pRBC yersterday around 18:00
anxious
Objective Data
-
Labs:
Laboratory Results
01/17/25 01/17/25 01/18/25
16:00 22:03 06:37
WBC 7.2
Hgb Cancelled 9.1 L 9.3 L
Hct Cancelled 27.4 L 29.0 L
Plt Count 281
Sodium Pending
Potassium Pending
Chloride Pending
Carbon Dioxide Pending
BUN Pending
Creatinine Pending
Glucose Pending
Calcium Pending
Total Bilirubin Pending
AST Pending
ALT Pending
Alkaline Phosphatase Pending
D-dimer 1.21
proBNP 3660
CXR:
IMPRESSION:
1. Mild to moderate acute interstitial and alveolar cardiogenic pulmonary edema.
2. Severe calcific atherosclerotic plaque in the thoracic aorta.
3. Mild cardiomegaly.
4. Left-sided biventricular cardiac pacemaker in place.
\\Urine culture no growth
Vital Signs:
Vital Signs
Temp Pulse Resp BP Pulse Ox
98.1 F 78 18 108/53 95
01/18/25 03:28 01/18/25 03:28 01/18/25 03:28 01/18/25 03:28 01/18/25 03:28
I&O
01/17/25 01/18/25 01/19/25
06:59 06:59 06:59
Intake Total 2210 / 2210 3030 / 3030
Output Total 500 / 500 550 / 550
Balance 1710 / 1710 2480 / 2480
Review of Systems
-
History Source: Patient
Constitutional: Reports No Symptoms
EENT: Reports No Symptoms Reported
Respiratory: Reports Trouble Breathing
Cardiac: Reports No Symptoms
Abdomen/GI: Reports No Symptoms
Genitourinary: Reports Bleeding
Musculoskeletal: Reports Other (bilateral calf tenderness to palpation)
Skin: Reports No Symptoms
Neuro: Reports No Symptoms
Physical Exam
-
General: Respiratory Distress
HEENT: Normocephalic
Respiratory: Decreased Breath Sounds (diffusely) and Other (I could not appreciate crackles on my exam)
Cardiac: Regular Rhythm
GI: Soft
Musculoskeletal: No Edema and Other (some tenderness to palpation of calves, bilaterally)
Skin: Warm and Dry
Neuro: Awake and Alert
Psych: Anxious
[2025-01-18 07:20] LABS: ALT (SGPT) 21 U/L (0-35); AST (SGOT) 28 U/L (14-36); Albumin 3.3 g/dl (3.5-5.0); Alkaline Phosphatase 74 U/L (38-126); Blood Urea Nitrogen 30 mg/dl (7-17); Calcium 8.5 mg/dl (8.4-10.2); Carbon Dioxide 23 mmol/L (22-30); Chloride 113 mmol/L (98-107); Estimated Creatinine Clearance 26 ml/min; Glucose 80 mg/dl (70-99); Potassium 4.5 mmol/L (3.5-5.1); Sodium 142 mmol/L (135-145); Total Protein 5.9 g/dl (6.3-8.2); eGFR 28.13
--- NOTE | 2025-01-18 07:50 | PTCARENOTE ---
Dr. Berry and Dr. Arora made aware pt. with large amount of bright red liquid stool this morning, automation driver reported no blood in BMs overnight. Pt. SOB on 2L o2 sat 83%, increased to 3L sat 98%, pro BNP 3660. New orders to follow.
--- NOTE | 2025-01-18 07:52 | W.PN.URO.CBU ---
Today's Communication / Plan
-
colonoscopy
Assessment / Plan
-
? hematuria- no objective evid at this time
gi eval ongoing
will follow
likely plan for outpt cysto at some point
Diagnosis
-
Date of Service: January 18, 2025
-
Patient Diagnosis:
? hematuria
anemia
gi bleed
Subjective
-
pt now with some SOB.CHF symptoms
urine was clear from tello most of day yesterday and ua negative
gi started colonoscopy prep and requested tello removal- so this was done
no hematuria notes- but did have large amount of blood with last bowel movement
Objective
-
Vital Signs
Temp Pulse Resp BP Pulse Ox
98.1 F 78 18 108/53 95
01/18/25 03:28 01/18/25 03:28 01/18/25 03:28 01/18/25 03:28 01/18/25 03:28
Intake and Output
01/17/25 01/18/25 01/19/25
06:59 06:59 06:59
Intake Total 2210 / 2210 3030 / 3030
Output Total 500 / 500 550 / 550
Balance 1710 / 1710 2480 / 2480
Intake:
Oral fluids 960 / 960 1320 / 1320
IV fluids (Total) 1000 / 1000 1100 / 1100
IV piggybacks 110 / 110
Blood products 250 / 250
Blood Product Amount Infused ( 250 / 250 250 / 250
mL)
Packed Rbc Leukoreduced Unit 250 / 250
[id number]
Packed Rbc Leukoreduced Unit 250 / 250
[id number]
Output:
Urine, Voided 500 / 500 550 / 550
Other:
Number of approximated MODERATE 1
amounts of urine
How many times incontinent 3
SATURATED amount urine
Laboratory Results
01/18/25 06:37
01/18/25 06:37
Review of Systems
-
Constitutional: Fatigue
Respiratory: Trouble Breathing
Cardiac: No Symptoms
Abdomen/GI: No Symptoms
: No Symptoms
Physical Exam
-
General - uncomfortable/ some SOB
Abdomen - soft, non-tender
[2025-01-18] MEDS: PROTONIX IV 40 MG IV ×2 (08:46→20:04)
[2025-01-18] MEDS: OSCAL 500 + D 500 MG PO (08:46)
[2025-01-18] MEDS: NSS (PRESERVATIVE FREE) 10 ML IV ×2 (08:46→20:04)
[2025-01-18] MEDS: ZETIA 10 MG PO (08:46)
[2025-01-18] MEDS: LASIX 20 MG IV (09:05)
--- NOTE | 2025-01-18 09:09 | W.PN.GI.CBS2 ---
Today's Communication / Plan
-
Cancel colonoscopy today given SOB and probable CHF from volume
Lasix ordered
CXR done
Will put on clears today and give Mg citrate tonight if otherwise stable and possible colonoscopy tomorrow
Hgb stable now
Assessment / Plan
-
Samaria Boyle is a 79F with a PMHx of CAD s/p PCI and A/fib on chronic anticoagulation with Eliquis, GERD, and family history of colon cancer who is presenting with elevated creatinine, acute blood loss anemia and blood in the toilet bowel, worse
over the past 1 week. The patient initially arrived with a Hb of 8.3. CT showed evidence of diverticulosis without hydronephrosis. Further evaluation has revealed no blood in the urine both in straight UA and UA s/p tello catheter, as well as heme
positive stools. We were consulted to evaluate for GI sources of bleeding.
Impression:
Rectal bleeding
SOB
Recent admission for CHF in October
Afib/eliquis
Subjective
Subjective
Date of Service: January 18, 2025
Took prep and cleared out BMs, then passed BRB this am. c/o SOB and sitting on edge of bed uncomfortable. O2 NC increased to 4L.
Objective
Data Reviewed
Laboratory Data:
Laboratory Results
01/18/25 06:37
01/18/25 06:37
Laboratory Results
Total Bilirubin 2.0 mg/dl (0.2-1.3) H 01/18/25 06:37
AST 28 U/L (14-36) 01/18/25 06:37
ALT 21 U/L (0-35) 01/18/25 06:37
Alkaline Phosphatase 74 U/L (38-126) 01/18/25 06:37
Vital Signs and I&O:
Vital Signs
Temp Pulse Resp BP Pulse Ox
98 F 80 18 126/66 83
01/18/25 07:04 01/18/25 07:04 01/18/25 07:04 01/18/25 07:04 01/18/25 07:04
I&O
01/17/25 01/18/25 01/19/25
06:59 06:59 06:59
Intake Total 2210 / 2210 3030 / 3030
Output Total 500 / 500 550 / 550
Balance 1710 / 1710 2480 / 2480
Physical Exam
Physical Exam
Pulmonary: Rales (b/l crackles)
GI: Soft and Tender
[2025-01-18] MEDS: TIGAN 200 MG IM (09:26)
[2025-01-18] MEDS: VALIUM INJECTION 2 MG IV (09:26)
[2025-01-18 09:52] LABS: D-Dimer 1.21 ug/mlFEU (0.00-0.50)
[2025-01-18 11:02] VITALS: BP 136/66
--- NOTE | 2025-01-18 13:36 | CON.CAR ---
Consultation
Consultation Request
Date/Time Consultation Requested: 01/18/25 10:00AM
Date/Time Consultation Performed: 01/18/25 12:00PM
Requesting Provider: Dr Barros
Performing Provider: Dr Robbins
Reason for Consultation: CHF
Medical History
-
Chief Complaint: sob
History of Present Illness:
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
with 1 week of anemia, and bleeding. It was unclear whether this was from her GI track or tract. Her hemoglobin was at 8.5. CT scan was overall unremarkable and GI and urology were consulted. Plan is for colonoscopy in AM. She states that
she [facility] with acute on chronic heart failure with preserved ejection fraction and was diuresed. Since then she has felt poorly with fatigue, malaise, and abdominal bloating. This has been worse somewhat recently.
While she was here she was given IV fluids and her weight has increased 5 to 6 pounds. She does complain of some orthopnea which is worse. She has no chest pains. She denies any palpitations or syncope. Her Eliquis has been stopped. She has no
previous history of bleeding. She follows with Dr. Salazar at [facility]. No fevers or chills. She was transfused 1 unit of packed red blood cells.
Past Medical History
Past Medical History: Arrhythmias (Paroxysmal atrial fibrillation status post PVI 2015), CAD (Coronary artery disease status post RCA stent), CHF (Chronic heart failure with preserved ejection fraction), HTN, Hypercholesterolemia and Other (History
of TIA, anemia)
Past Surgical History: Cardiac (Biventricular pacemaker) and Orthopedic (Hip replacement)
Social History
Tobacco: Non-Smoker
Alcohol: None
Drug: None
Living: With Family
Employment: Retired
Family History
Family History: Hypertension
Allergies / Home Medications
Allergy/AdvReac Type Severity Reaction Status Date / Time
YVETTE Inhibitors Allergy cough Verified 01/16/25 12:10
acetaminophen (From Allergy Unknown Verified 01/16/25 12:10
Darvocet-N)
duloxetine HCl (From Allergy Unknown Verified 01/16/25 12:10
Cymbalta)
Iodinated Contrast Media Allergy throat Verified 01/16/25 12:10
(Iodinated Contrast Media - closing
IV Dye)
latex Allergy Rash Verified 01/16/25 12:10
oxycodone Allergy hallucinati Verified 01/16/25 12:10
ons
penicillin V potassium (From Allergy Unknown Verified 01/16/25 12:10
Pen-Vee K)
pregabalin (From Lyrica) Allergy Unknown Verified 01/16/25 12:10
propoxyphene napsylate (From Allergy Unknown Verified 01/16/25 12:10
Darvocet-N)
shellfish derived Allergy Anaphylaxis Verified 01/16/25 12:10
�Medication �Instructions �Recorded �Confirmed �Type
ascorbic acid (vitamin C) 500 mg 500 mg PO DAILY 07/21/15 01/16/25 History
tablet (Vitamin C)
atorvastatin 40 mg tablet 40 mg PO HS 07/21/15 01/16/25 History
omega 2-ydk-ilt-fish oil 250 1 cap PO DAILY 07/21/15 01/16/25 History
mg-500 mg-1,000 mg capsule
metoprolol succinate 25 mg 25 mg PO QPM 02/23/16 01/16/25 History
tablet,extended release 24 hr
apixaban 5 mg tablet (Eliquis) 5 mg PO BID ##1 03/28/16 01/16/25 Rx
amiodarone 200 mg tablet 200 mg PO HS 01/16/25 01/16/25 History
aspirin 81 mg tablet,delayed 81 mg PO DAILY 01/16/25 01/16/25 History
release
calcium 500 mg (as 1 tab PO DAILY 01/16/25 01/16/25 History
carbonate)-vitamin D3 10 mcg (400
unit) tablet (Calcium 500 + D)
cyanocobalamin (vitamin B-12) 1,000 mcg PO DAILY 01/16/25 01/16/25 History
1,000 mcg tablet
empagliflozin 10 mg tablet 10 mg PO DAILY 01/16/25 01/16/25 History
(Jardiance)
ezetimibe 10 mg tablet (Zetia) 10 mg PO DAILY 01/16/25 01/16/25 History
furosemide 40 mg tablet (Lasix) 40 mg PO DAILY 01/16/25 01/16/25 History
spironolactone 25 mg tablet 25 mg PO QPM 01/16/25 01/16/25 History
atorvastatin 40 mg tablet (Lipitor) 40 mg PO DAILY 01/17/25 01/17/25 History
oxybutynin chloride 5 mg tablet 5 mg PO DAILY 01/17/25 01/17/25 History
pantoprazole 40 mg tablet,delayed 40 mg PO BID 01/17/25 01/17/25 History
release
pregabalin 25 mg capsule 25 mg PO BID 01/17/25 01/17/25 History
Review of Systems
-
History Source: Patient and Family
Constitutional: Weight Gain and Fatigue
EENT: No Symptoms
Respiratory: Trouble Breathing
Cardiac: No Symptoms
Abdomen/GI: Bloody Stools
: Bleeding
Musculoskeletal: Edema
Skin: No Symptoms
Neurological: No Symptoms
Endocrine: No Symptoms
Hematologic/Lymphatic: No Symptoms
Physical Exam
Vital Signs
Temp Pulse Resp BP Pulse Ox
98.4 F 83 18 136/66 94
01/18/25 11:02 01/18/25 11:02 01/18/25 11:02 01/18/25 11:02 01/18/25 11:02
Lab Results
01/18/25 06:37
Abv-J-Uwczseyihiv Pept 3660 pg/ml 01/18/25 06:37
Physical Exam
General: Well Developed, Well Nourished and No Apparent Distress
HEENT: Normocephalic and Anicteric
Respiratory: Rhonchi and Non Labored Respirations
Cardiac: S1/S2, Regular Rhythm and Murmur (06/02 syst LSB)
GI: Soft, Non Tender and Distended
Skin: Warm and Dry
Neuro: AO x 3
Psych: Calm
Impression / Plan
-
Assessment:
Anemia/GI/ bleed
Acute on chronic heart failure with preserved ejection fraction
Persistent atrial fibrillation status post PVI 2015
Biventricular pacemaker
Coronary arteries status post RCA PCI
Hypertension
Hyperlipidemia
Restless leg syndrome
Acute on chronic renal failure
GERD
Echo 2023, EF 55-60% with a dilated left atrium
EKG ventricular paced
Athletic Director, Dr. Rafa Salazar of [facility]
Plan:
She has a history of chronic heart failure with preserved ejection fraction, persistent A-fib on Eliquis who presents with anemia and a presumed GI bleed. Agree with plan for colonoscopy in AM. Continue to hold Eliquis.
Her weight is elevated. Would start IV Lasix today and give 60 mg IV x 1 and then reassess in AM. She will also be getting a bowel prep for her colonoscopy.
Creatinine is improving and down to 1.8. Was 3.5 on admission. She has baseline CKD 3 to start. Will review records from [facility].
Continue Toprol, amiodarone and rate control strategy for A-fib. Hemoglobin is 9.3. Would stop IV fluids.
Will check echo in a.m. to reevaluate LVEF.
Hemoglobin improved and up to 9.3. Continue to follow.
With current bleeding and renal issues we will hold off on SLG 2 inhibitor.
Data Reviewed
-
EKG: Report Reviewed by me
Radiology: Report Reviewed by me
Medical Tests (Nuc Med, Echo etc): Report Reviewed by me
Labs: Labs Reviewed by me
Old Records: Reviewed
[2025-01-18 14:19] LABS: Blood Urea Nitrogen 30 mg/dl (7-17); Calcium 8.8 mg/dl (8.4-10.2); Carbon Dioxide 22 mmol/L (22-30); Chloride 111 mmol/L (98-107); Estimated Creatinine Clearance 28 ml/min; Glucose 127 mg/dl (70-99); Potassium 4.1 mmol/L (3.5-5.1); Sodium 139 mmol/L (135-145); eGFR 30.13
[2025-01-18] MEDS: LASIX 60 MG IV (15:07)
[2025-01-18 15:13] VITALS: BP 109/68
[2025-01-18] MEDS: TOPROL XL 25 MG PO (17:02)
[2025-01-18] MEDS: CITROMA 300 ML PO (17:02)
[2025-01-18 19:12] VITALS: BP 111/54
--- NOTE | 2025-01-18 19:27 | PTCARENOTE ---
Pt. called to report facial redness after drinking half of the bottle of mag citrate. Pt. denies itching. Dr. Berry made aware, new orders placed for different bowel prep. TERMINAL COMPUTER OPERATOR, Suellen Javier made aware and at bedside to assess facial redness. On
coming shift nurse updated. Pt. resting in bed with call cm in reach.
--- NOTE | 2025-01-18 19:37 | W.PN.UPDATE ---
Update Note
Progress Note Update
RN reporting that pt called her into room stating after drinking half bottle of mag citrate he face turned red.
RN notified GI who changed rest of colo prep to miralax.
On eval pt is laying in bed with at bedside. No distress noted. Denies itching. Denies resp complaints. Both cheeks with erythema R>L.
Will order pepcid and zyrtec. Told pt if she needs Benadryl overnight let RN know.
[2025-01-18] MEDS: PEPCID 20 MG PO (19:58)
[2025-01-18] MEDS: ZYRTEC 10 MG PO (19:58)
[2025-01-18] MEDS: REQUIP 0.5 MG PO (22:46)
[2025-01-18] MEDS: LIPITOR 40 MG PO (22:46)
[2025-01-18] MEDS: PACERONE 200 MG PO (22:46)
[2025-01-18 23:05] VITALS: BP 115/61
[2025-01-19] VITALS (8 sets, daily range): BP systolic 92–125; BP diastolic 56–69; PULSE 79; O2SAT 100; BMI 27.9
--- NOTE | 2025-01-19 07:35 | PTCARENOTE ---
Pt aaox3 able to make her needs known. Denies pain.Pt refused the miralax bowel prep overnight.SHAWNA Ken was made aware. Pt having loose liquidy yellow to greenish stools at this time. Plan of care continued. Pt rash on face was better over night.No
other complaints noted.Pt NPO at this time.
[2025-01-19 07:36] LABS: Hematocrit 28.4 % (37.0-47.0); Hemoglobin 9.2 g/dL (12.0-16.0); Mean Corp Hgb Conc. 32.4 g/dL (33.0-37.0); Mean Corpuscular Volume 84.8 fL (81.0-99.0); Platelet Count 269 10^3/uL (130-400); Red Cell Dist. Width 15.9 % (11.5-14.5)
[2025-01-19] MEDS: PROTONIX IV 40 MG IV ×2 (08:04→20:53)
[2025-01-19] MEDS: ZETIA 10 MG PO (08:04)
[2025-01-19] MEDS: OSCAL 500 + D 500 MG PO (08:04)
[2025-01-19] MEDS: NSS (PRESERVATIVE FREE) 10 ML IV ×2 (08:04→20:54)
[2025-01-19 08:05] LABS: Blood Urea Nitrogen 28 mg/dl (7-17); Calcium 9.1 mg/dl (8.4-10.2); Carbon Dioxide 25 mmol/L (22-30); Chloride 108 mmol/L (98-107); Estimated Creatinine Clearance 27 ml/min; Glucose 89 mg/dl (70-99); Potassium 4.1 mmol/L (3.5-5.1); Sodium 140 mmol/L (135-145); eGFR 30.13
--- NOTE | 2025-01-19 08:50 | W.PN.HOSP.TC ---
Addendum entered and electronically signed by Vicente Hodge MD 01/19/25 22:30:
Attending Addendum-
I saw and evaluated the patient. I reviewed the resident�s note and agree with findings and plan as documented in the resident�s note. Sub: seen with post colonoscopy. No further blood in stools or hematuria. Denies NV abd pain. Full 12
point ROS reviewed and negative except as documented Exam: Vitals reviewed in chart GEN-NAD heart RRR lungs clear abd soft LE no edema
Plan:
# Symptomatic anemia
# acute blood loss anemia/Lower GI bleed
# iron deficiency anemia
- hemeoccult positive
- s/p 1 unit PRBC
- Hgb stable
- iron studies c/w iron deficiency anemia given IV iron 01/17
- IV pantoprazole 40mg bid
-colon 01/19-One 3 mm polyp in the ascending colon, removed with a cold snare.Resected and retrieved.
-One 5 mm polyp in the descending colon, removed with a cold snare. Resected and retrieved.
-Diverticulosis in the transverse colon, in the descending colon and in the sigmoid colon.
-Internal hemorrhoids.
-restart apixaban 01/20, aspirin is being held
-monitor VS, trend CBC
# AE HFimpEF
# Acute hypoxemic resp failure
- echo 01/19-Mild concentric left ventricular hypertrophy with normal cavity size and preserved systolic function, ejection fraction 60-65%
- s/p lasix 20mg IV x 1, restart lasix on DC
- f/u BMP
- DC IVF
- wean o2 for SpO2 > 92%
- cardiology input appreciated- cont Jardiance metoprolol spironolactone
#Hematuria-resolved
# MERYL on CKD 3b
- resolving
- baseline @ 1.5 presumptively
- repeat BMP in am, cont SGLTi
# Atrial fibrillation - s/p PVI, holding apixaban restart in am ; continue metoprolol succinate, continue amiodarone
# CAD s/p PCI - currently holding aspirin 81mg
# h/o CVA- cont statin and asa on DC
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
# HLD - continue atorvastatin and zetia
# restless leg syndrome - continue ropinirole
Code status: DNR
DVT ppx: SCDs restart Eliquis in am
Dispo DC home in am
ACP
Patient consented to discuss, was with , time spent explanation of advance directives, changes in health status, patient�s health care wishes if the patient becomes unable to make health decisions, goals of care, code status, and prognosis
'yeah i have living will its a DNR'- 16 minutes
Time spent coordinating care, review of plan of care with resident, personally reviewed previous records in EMR, med rec, labs, radiology, d/w nursing, family total time documented is exclusive of any additional time listed that was spent in advance
care planning discussion -� 52 minutes
Original Note:
Today's Communication/Plan
-
Restart Apixaban, monitoring blood loss
Possible discharge tomorrow
Assessment / Plan
Assessment / Plan
A 79 yo F who is presenting with hemeoccult positive stool, hematuria, and symptomatic anemia. She got colonoscopy today.
# Symptomatic anemia
# acute blood loss anemia
# iron deficiency anemia
- VS continue to be normal
- Hgb 9.2 this morning
- iron studies has shown iron deficiency anemia for which she received IV Iron
- IV pantoprazole 40mg bid
- monitor VS, trend CBC
# acute on chronic HF exacerbation (unclear type)
- dyspnea has resolved no longer requiring supplemental Oxygen therapy
- No longer volume overloaded, following treatment with lasix
- f/u PM BMP
-no longer any fluids
- supplemental oxygenation to maintain SpO2 > 92%
- cardiology consulted
# GI bleed
-Colonoscopy performed today which showed most likely diverticular bleed that is resolved
-ok to resume Apixaban
- monitor CBC and if levels are ok we will discharge tomorrow
# MERYL
- Cr 1.7 from 1.8 / 2.7 from 3.5
- BUN 28/ 30 from 56 from 62
- unclear creatinine baseline, potentially some element of CKD
- likely etiology is multifactorial: prerenal with combination of GI bleed and dehydration/poor PO intake
- hold diuretics: SGLT2i, furosemide, spironolactone
- monitor BMP
# atrial fibrillation - continue apixaban, continue metoprolol succinate, continue amiodarone
# CAD - currently holding aspirin 81mg
# CHF, unclear type: holding diuretics as above
# HTN - holding diuretics as above
# HLD - continue atorvastatin
# restless leg syndrome - continue ropinorole
Diet: low residue
Code status: DNR
DVT ppx: Apixaban
Disposition: pending further workup
Anticipated Discharge: Within 24 hours
Subjective/Interval History
-
Date of Service: January 19, 2025
Denies SOB, No blood in stool. Patient�s face turned red- after drinking half bottleof magnesium citrate
RN informed GI, changed rest of colo prep to miralax
Denied itching, resp complaints, both cheeks erythema
Ordered pepcid and zyrtec. Pt Let RN know if patient needs benadryl overnight.
She had SOB was better last night comparing to day before. IV lasix 80, improved her SOB. Nasal cannula O2 3L from 4L, Watery stools since last night.
Objective Data
-
Labs:
Laboratory Results
01/19/25
06:58
WBC 5.6
Hgb 9.2 L
Hct 28.4 L
Plt Count 269
Sodium 140
Potassium 4.1
Chloride 108 H
Carbon Dioxide 25
BUN 28 H
Creatinine 1.7 H
Glucose 89
Calcium 9.1
Vital Signs:
Vital Signs
Temp Pulse Resp BP Pulse Ox
98 F 88 20 113/62 100
01/19/25 03:41 01/19/25 03:41 01/19/25 03:41 01/19/25 03:41 01/19/25 08:00
I&O
01/18/25 01/19/25 01/20/25
06:59 06:59 06:59
Intake Total 3030 / 3030 840 / 840
Output Total 550 / 550
Balance 2480 / 2480 840 / 840
Review of Systems
-
History Source: Patient
Constitutional: Reports No Symptoms
EENT: Reports No Symptoms Reported
Respiratory: Reports No Symptoms
Cardiac: Reports No Symptoms
Abdomen/GI: Reports No Symptoms
Genitourinary: Reports No Symptoms
Musculoskeletal: Reports No Symptoms
Skin: Reports No Symptoms
Neuro: Reports No Symptoms
Physical Exam
-
General: Well Developed, Well Nourished and No Apparent Distress
HEENT: Normocephalic and Atraumatic
Respiratory: Clear to Auscultation
Cardiac: Regular Rhythm and S1/S2
GI: Soft, Nontender and Nondistended
Musculoskeletal: No Edema
Skin: Warm and Dry
Neuro: Awake, Alert and Oriented
Psych: Calm
Data Reviewed
-
Medical Tests (Nuc Med, Echo etc): Report Reviewed by me, Discussed with Physician, Discussed with Patient and Discussed with Family
Labs: Labs Reviewed by me, Discussed with Physician, Discussed with Patient and Discussed with Family
--- NOTE | 2025-01-19 09:33 | W.PN.CARDCBS ---
Addendum entered and electronically signed by Zita Drake MD 01/19/25 13:54:
I did discuss some broad strokes with the patient and her and if she continues with GI bleeding as a concern could consider future Watchman device as an alternative possibly to oral anticoagulation.
Addendum entered and electronically signed by Zita Drake MD 01/19/25 13:13:
I saw and examined the patient.
The Screw Machine Operator's note was reviewed and I agree with the note.
Comment: General: Well developed, well nourished in NAD.
Heart: Non displaced PMI, RRR, no murmurs, No S3, S4, no rubs.
Lungs: Clear to auscultation bilaterally, no wheeze, rhonchi, rubs bilaterally,
normal expiratory phase.
Abdomen: Normal bowel sounds, soft, non-tender, non-distended.
Extremities: No clubbing, cyanosis or edema bilaterally.
Neuro: Grossly nonfocal, awake, alert and oriented x3.
I spoke with the patient and her at the bedside. She was admitted for GI bleed and acute heart failure.
She underwent colonoscopy and polyps were noted.
-I did speak with GI and she may resume Eliquis tomorrow.
Acute on chronic HFpEF-for which she did receive IV diuretics initially. Weights are up and down.
- Reassess volume status in AM. Resume usual oral Lasix
She has renal insufficiency and creatinine is fairly stable.
Improved cardiomyopathy, EF 40% in 2015 and improved to 55 to 60% by echo 2023
- Echocardiogram pending
Persistent atrial fibrillation
-status post PVI 2016 (Eliquis)
Medtronic biventricular pacemaker
She has no chest pain currently. She has history of CAD status post RCA PCI
- Continue risk factor modification.
Telemetry reviewed by me stable. Labs reviewed by me noted.
Original Note:
Today's Communication / Plan
-
Consider additional IV diuresis pending colonoscopy
Restart Eliquis at 2.5 mg BID, age 79, Cre 1.7
Impression / Plan
-
PCP: Dr. Ayaka Paz
Card: Dr. Salazar
Impression:
Admitted with GI bleed and acute HF 01/16/2025
Anemia/GI/ bleed
Acute on chronic HFpEF
Improved cardiomyopathy, EF 40% in 2015 and improved to 55 to 60% by echo 2023
Persistent atrial fibrillation
status post PVI 2015
Chronic Eliquis OAC
Medtronic biventricular pacemaker
CAD
RCA PCI
Hypertension
Hyperlipidemia
Restless leg syndrome
Acute on chronic renal failure
GERD
MERYL on CKD 3a
Echo 2023, EF 55-60% with a dilated left atrium
Echo 01/19/25: Study pending
Plan:
-Patient came to the ER with an outpatient Hgb of 8.5 and was admitted for GI workup. Cardiology then consulted for acute HF.
-Patient had possible allergic reaction to magnesium citrate preparation overnight, reportedly flushed cheeks. Colonoscopy preparation switched to MiraLAX and patient sent for study on 820 5:25 AM
-Patient has received 2 units PRBCs this admission. Hgb as low as 7.8 on 01/17/2025 and Hgb improved to 9.2 on my review of labs 01/19/2025
-Outpatient dose of Eliquis 5 mg BID has been on hold since admission, but can be restarted at lower dose of 2.5 mg BID due ot age 79 and Cre 1.7 on 01/19/25. Orders placed by me
-Consider evaluation for watchman device
-Outpatient dose of aspirin 81 mg daily on hold
-Outpatient dose of amiodarone 200 mg daily has been continued. ECG from 01/16/2025 was reviewed by me on 01/19/2025 and the QTc is 620 ms in the setting of V paced complexes
-Patient was given Lasix 60 mg IV x 1 on 01/18/2025. Patient was taking Lasix 40 mg PO daily prior to admission. No additional doses of Lasix IV have been ordered and the outpatient dose of Lasix is on hold. Pending hemodynamics during colonoscopy
could consider additional IV diuresis
-EF was as low as 40% in 2015, but then improved to 55 to 60% by echo in 2023. Repeat echo scheduled for 01/19/2025, order placed by me
-IV fluids have been stopped
-Outpatient dose of Toprol XL 25 mg daily has been continued
-Outpatient dose of spironolactone 25 mg daily is on hold
-Outpatient dose of Jardiance 10 mg daily is on hold, which should be restarted when stable
-Cre as high as 3.5 on admission labs from 01/16/2025, but improved to 1.7 on labs reviewed by me 01/19/2025. Patient with known CKD 3a
Progress Note - Director Emergency
Subjective
Date of Service: January 19, 2025
Feels well
Objective
Labs:
01/19/25 06:58
01/19/25 06:58
Labs
Hgb 9.2 g/dL (12.0-16.0) L 01/19/25 06:58
Hct 28.4 % (37.0-47.0) L 01/19/25 06:58
Plt Count 269 10^3/uL (130-400) 01/19/25 06:58
Sodium 140 mmol/L (135-145) 01/19/25 06:58
Potassium 4.1 mmol/L (3.5-5.1) 01/19/25 06:58
BUN 28 mg/dl (7-17) H 01/19/25 06:58
Creatinine 1.7 mg/dL (0.6-1.0) H 01/19/25 06:58
Glucose 89 mg/dl (70-99) 01/19/25 06:58
Vital Signs and I&O:
Vital Signs
Temp Pulse Resp BP Pulse Ox
98.1 F 73 18 115/65 100
01/19/25 07:25 01/19/25 07:25 01/19/25 07:25 01/19/25 07:25 01/19/25 08:00
Vital Signs
Temp Pulse Resp BP Pulse Ox
98.1 F 73 18 115/65 100
01/19/25 07:25 01/19/25 07:25 01/19/25 07:25 01/19/25 07:25 01/19/25 08:00
Intake & Output
01/17/25 01/18/25 01/19/25 01/20/25
06:59 06:59 06:59 06:59
Intake Total 2210 / 2210 3030 / 3030 840 / 840
Output Total 500 / 500 550 / 550
Balance 1710 / 1710 2480 / 2480 840 / 840
--- NOTE | 2025-01-19 09:43 | W.PN.UPDATE ---
Update Note
Progress Note Update
Colonoscopy done
3mm ascending colon polyp removed w cold snare
5mm descending colon polyp removed w cold snare
Diverticulosis transverse, desc, sigmoid
Internal hemorhroids
Normal TI
REC:
Low residue diet
Await path
OK to resume Eliquis
Probable diverticular bleed, now resolve
[2025-01-19] MEDS: TOPROL XL 25 MG PO (17:26)
[2025-01-19] MEDS: FLUSH (NSS) 1 FLUSH IV (20:53)
[2025-01-19] MEDS: REQUIP 0.5 MG PO (21:01)
[2025-01-19] MEDS: LIPITOR 40 MG PO (21:01)
[2025-01-19] MEDS: PACERONE 200 MG PO (21:01)
[2025-01-20 07:15] VITALS: BP 128/74
--- NOTE | 2025-01-20 07:29 | W.PN.URO.CBU ---
Today's Communication / Plan
-
outpt f/u if stable on eliquis resumption
Assessment / Plan
-
? hematuria- no objective evid at this time
pt to restart eliquis
if no evid of hematuria- then have asked pt to schedule outpt f/u with dr thomas
call if any ?'s or evid of hematuria
Diagnosis
-
Date of Service: January 20, 2025
-
Patient Diagnosis:
? hematuria
anemia
gi bleed
Subjective
-
pt looks and feels better
colonoscopy findings noted
ucx negative
no blood in urine
Objective
-
Vital Signs
Temp Pulse Resp BP Pulse Ox
98.9 F 88 20 125/64 93
01/19/25 23:21 01/19/25 23:21 01/19/25 23:21 01/19/25 23:21 01/19/25 23:21
Intake and Output
01/19/25 01/20/25 01/21/25
06:59 06:59 06:59
Intake Total 840 / 840 720 / 720
Balance 840 / 840 720 / 720
Intake:
Oral fluids 840 / 840 720 / 720
Other:
Number of approximated MODERATE 3 2
amounts of urine
How many times incontinent 2
MODERATE amount urine
How many times incontinent 3
SATURATED amount urine
Number of unmeasured liquid
stools
Rectum 1
Review of Systems
-
Constitutional: Fatigue
Respiratory: No Symptoms
Cardiac: No Symptoms
Abdomen/GI: No Symptoms
Physical Exam
-
General - no acute distress
[2025-01-20 07:54] LABS: Hematocrit 29.1 % (37.0-47.0); Hemoglobin 9.2 g/dL (12.0-16.0); Mean Corp Hgb Conc. 31.6 g/dL (33.0-37.0); Mean Corpuscular Volume 86.1 fL (81.0-99.0); Platelet Count 279 10^3/uL (130-400); Red Cell Dist. Width 16.3 % (11.5-14.5)
[2025-01-20 08:18] LABS: ALT (SGPT) 18 U/L (0-35); AST (SGOT) 24 U/L (14-36); Albumin 3.2 g/dl (3.5-5.0); Alkaline Phosphatase 71 U/L (38-126); Blood Urea Nitrogen 20 mg/dl (7-17); Calcium 8.6 mg/dl (8.4-10.2); Carbon Dioxide 25 mmol/L (22-30); Chloride 109 mmol/L (98-107); Estimated Creatinine Clearance 33 ml/min; Glucose 89 mg/dl (70-99); Potassium 4.1 mmol/L (3.5-5.1); Sodium 139 mmol/L (135-145); Total Protein 5.8 g/dl (6.3-8.2); eGFR 38.03
--- NOTE | 2025-01-20 09:03 | W.PN.HOSP.TC ---
Addendum entered and electronically signed by Vicente Hodge MD 01/20/25 22:50:
Attending Addendum-
I saw and evaluated the patient. I reviewed the resident�s note and agree with findings and plan as documented in the resident�s note. Sub: seen with feels great. No blood in stools or hematuria. Denies NV abd pain. Full 12 point ROS
reviewed and negative except as documented Exam: Vitals reviewed in chart GEN-NAD heart RRR lungs clear abd soft LE no edema
Plan:
# Symptomatic anemia
# acute blood loss anemia/Lower GI bleed
# iron deficiency anemia
- hemeoccult positive
- s/p 1 unit PRBC
- Hgb stable
- iron studies c/w iron deficiency anemia given IV iron 01/17
- IV pantoprazole 40mg bid
- colon 01/19-One 3 mm polyp in the ascending colon, removed with a cold snare.Resected and retrieved.
-One 5 mm polyp in the descending colon, removed with a cold snare. Resected and retrieved.
-Diverticulosis in the transverse colon, in the descending colon and in the sigmoid colon.
-Internal hemorrhoids.
-restarted apixaban
-monitor VS, trend CBC
# AE HFimpEF
# Acute hypoxemic resp failure
- echo 01/19-Mild concentric left ventricular hypertrophy with normal cavity size and preserved systolic function, ejection fraction 60-65%
- s/p lasix 20mg IV x 1, restart lasix on DC
- f/u BMP
- DC IVF
- wean o2 for SpO2 > 92%
- cardiology input appreciated- cont Jardiance metoprolol spironolactone
#Hematuria-resolved
# MERYL on CKD 3b
- resolving
- baseline @ 1.5 presumptively
- repeat BMP in am, cont SGLTi
# Atrial fibrillation - s/p PVI, restart apixaban continue metoprolol succinate, continue amiodarone
# CAD s/p PCI - currently holding aspirin 81mg
# h/o CVA- cont statin and asa on DC
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
# HLD - continue atorvastatin and zetia
# restless leg syndrome - continue ropinirole
Code status: DNR
DVT ppx: SCDs restart Eliquis in am
Dispo DC home
Time spent coordinating care, DC planning, review of DC plan of care with resident, transition of care, review of records, med rec/scripts sent electronically, consults, notes, d/w consultants, nursing, family, and CM� 32 mins >50% of this time was
devoted to counseling and coordination of care
Original Note:
Today's Communication/Plan
-
Follow up with PCP within a week
Start Ferrous Sulfate 325mg P.O
Follow up with GI for pathology results
Discharge
Assessment / Plan
Assessment / Plan
A 79 yo F who is presenting with hemeoccult positive stool, hematuria, and symptomatic anemia. She got colonoscopy today.
# Symptomatic anemia
# acute blood loss anemia
# iron deficiency anemia
- VS continue to be normal
- Hgb 9.2 this morning
- iron studies has shown iron deficiency anemia for which she received IV Iron 01/17
- will discharge on ferrous sulfate 325 mg PO
# acute exacerbated HFimpEF
- dyspnea has resolved no longer requiring supplemental Oxygen therapy
- No longer volume overloaded, continue Lasix 40 mg p.o daily on discharge
-no longer any fluids
-cardiology consulted- Echo with preserved ejection fraction 60-65%, mild concentric LV hypertrophy
# GI bleed
-Colonoscopy performed today which showed most likely diverticular bleed that is resolved
-ok to resume Apixaban
-Hb 9.2 stable will discharge today
# MERYL
- Cr 1.4 from 1.7 / 2.7 from 3.5
- BUN 20 from 28/ 30 / 56 / 62
- unclear creatinine baseline, potentially some element of CKD
- likely etiology is multifactorial: prerenal with combination of GI bleed and dehydration/poor PO intake
# atrial fibrillation - continue apixaban, continue metoprolol succinate, continue amiodarone
# CAD - stop aspirin 81mg
# CHF, unclear type: continue lasix 40mg p.o
# HTN - continue lasix as above
# HLD - continue atorvastatin
# restless leg syndrome - continue ropinorole
Diet: low residue
Code status: DNR
DVT ppx: Apixaban
Discharge 01/20/2025
Anticipated Discharge: Today
Subjective/Interval History
-
Date of Service: January 20, 2025
She is sitting on the chair. She had no complaints last night. She wants to go home.
Objective Data
-
Labs:
Laboratory Results
01/20/25
06:51
WBC 4.7 L
Hgb 9.2 L
Hct 29.1 L
Plt Count 279
Sodium 139
Potassium 4.1
Chloride 109 H
Carbon Dioxide 25
BUN 20 H
Creatinine 1.4 H
Glucose 89
Calcium 8.6
Total Bilirubin 1.7 H
AST 24
ALT 18
Alkaline Phosphatase 71
Vital Signs:
Vital Signs
Temp Pulse Resp BP Pulse Ox
98.5 F 105 16 128/74 95
01/20/25 07:15 01/20/25 07:15 01/20/25 07:15 01/20/25 07:15 01/20/25 07:15
I&O
01/19/25 01/20/25 01/21/25
06:59 06:59 06:59
Intake Total 840 / 840 720 / 720
Balance 840 / 840 720 / 720
Review of Systems
-
History Source: Patient
Constitutional: Reports No Symptoms
EENT: Reports No Symptoms Reported
Respiratory: Reports No Symptoms
Cardiac: Reports No Symptoms
Abdomen/GI: Reports No Symptoms
Genitourinary: Reports No Symptoms
Musculoskeletal: Reports No Symptoms
Skin: Reports No Symptoms
Neuro: Reports No Symptoms
Physical Exam
-
General: Well Developed, Well Nourished, No Apparent Distress and Comfortable
HEENT: Normocephalic and Atraumatic
Respiratory: Clear to Auscultation
Cardiac: Regular Rhythm and S1/S2
Breast: Deferred by me
GI: Soft, Nontender and Nondistended
Musculoskeletal: No Edema
Skin: Warm and Dry
Neuro: AO x 3
Psych: Calm
[2025-01-20] MEDS: PROTONIX IV 40 MG IV (09:12)
[2025-01-20] MEDS: NSS (PRESERVATIVE FREE) 10 ML IV (09:12)
[2025-01-20] MEDS: ZETIA 10 MG PO (09:13)
[2025-01-20] MEDS: ELIQUIS 2.5 MG PO (09:13)
[2025-01-20] MEDS: OSCAL 500 + D 500 MG PO (09:13)
--- NOTE | 2025-01-20 10:25 | W.PN.GI.CBS2 ---
Addendum entered and electronically signed by Sabrina Cody DO 01/20/25 15:05:
Patient seen and examined independently of GASKET NOTCHER. I agree with her note and my additions below
Today, Samaria is doing well. She is back on her Eliquis. She has no signs of bleeding. She had no blood found during her colonoscopy but it was considered a suspected likely resolved diverticular bleed.
Hemoglobin is stable
I discussed with the and patient what to look for at home
Need to follow-up CBC in 1 to 2 weeks
Patient follows with Dr. Dunbar for GI
Agree with discharge
Dr. Rosenthal will contact patient with path report when available
Original Note:
Today's Communication / Plan
-
s/p colonoscopy 01/19 with no source of bleeding and polyps, diverticulosis and hemorrhoids with clearing of stools with prep to brown
likely diverticular bleed
no further bleeding today and feeling well
hbg stable 9.2
cont low residue diet 2 weeks then advance high fiber by 4 weeks
updated family in room- all questions answered
call 1-2 weeks to review path-- OP follows with Dr. Dunbar
will sign off -- call if we can be of any assistance
sent update to hospitalist team for discharge
Assessment / Plan
-
Samaria Boyle is a 79F with a PMHx of CAD s/p PCI and A/fib on chronic anticoagulation with Eliquis, GERD, and family history of colon cancer who is presenting with elevated creatinine, acute blood loss anemia and blood in the toilet bowel, worse
over the past 1 week. The patient initially arrived with a Hb of 8.3. CT showed evidence of diverticulosis without hydronephrosis. Further evaluation has revealed no blood in the urine both in straight UA and UA s/p tello catheter, as well as heme
positive stools. We were consulted to evaluate for GI sources of bleeding.
01/19- colonoscopy rosenthal good prep to TI - One 3 mm polyp in the ascending colon, removed with a cold snare.
Resected and retrieved.
- One 5 mm polyp in the descending colon, removed with a cold
snare. Resected and retrieved.
- Diverticulosis in the transverse colon, in the descending colon
and in the sigmoid colon.
- Internal hemorrhoids.
- The examined portion of the ileum was normal.
Impression:
Rectal bleeding
SOB
Recent admission for CHF in October
Afib/eliquis
PLAN:
s/p colonoscopy 01/19 with no source of bleeding and polyps, diverticulosis and hemorrhoids with clearing of stools with prep to brown
likely diverticular bleed
no further bleeding today and feeling well
hbg stable 9.2
cont low residue diet 2 weeks then advance high fiber by 4 weeks
updated family in room all questions answered
call 1-2 weeks to review path-- OP follows with Dr. Dunbar
will sign off -- call if we can be of any assistance
sent update to hospitalist team for discharge
Subjective
Subjective
Date of Service: January 20, 2025
01/19 brown stool with prep on low residue diet feeling better asking about discharge
Objective
Data Reviewed
Laboratory Data:
Laboratory Results
01/20/25 06:51
01/20/25 06:51
Laboratory Results
Total Bilirubin 1.7 mg/dl (0.2-1.3) H 01/20/25 06:51
AST 24 U/L (14-36) 01/20/25 06:51
ALT 18 U/L (0-35) 01/20/25 06:51
Alkaline Phosphatase 71 U/L (38-126) 01/20/25 06:51
Vital Signs and I&O:
Vital Signs
Temp Pulse Resp BP Pulse Ox
98.5 F 105 16 128/74 95
01/20/25 07:15 01/20/25 07:15 01/20/25 07:15 01/20/25 07:15 01/20/25 07:15
I&O
01/19/25 01/20/25 01/21/25
06:59 06:59 06:59
Intake Total 840 / 840 720 / 720
Balance 840 / 840 720 / 720
Physical Exam
Physical Exam
HEENT: Anicteric and Moist mucous membranes
Cardiology: Normal Sinus Rhythm
Pulmonary: Clear
GI: Soft, Non Distended and Non Tender
Extremities: No Edema
Neuro: Non Focal
[2025-01-20 11:05] VITALS: BP 129/62
--- NOTE | 2025-01-20 12:13 | W.PN.CARDCBS ---
Addendum entered and electronically signed by Roc Robbins MD 01/20/25 14:36:
I saw and examined the patient.
The Calender Roll Press Operator's note was reviewed and I agree with the note.
Comment:
GEN: No distress, awake, Ox3
HEENT: supple, anicteric, mmm
LUNGS: CTA, no wheezes/rales
CV: Reg, S1/S2, 1/6 syst LSB, no gallop
ABD: soft, BS+, NT/ND
EXT: No edema
NEURO: Gross non-focal
SKIN: No rash
PLan:
STUDY DIRECTOR-D is at end-of-life. Will discuss with Dr. Salazar's office regarding generator change. I discussed this with patient as well.
Hemoglobin at 9.2. Possible diverticular bleed. Back on Eliquis. Would stop aspirin.
Continue amiodarone, metoprolol, and atorvastatin.
Continue Lasix 40 mg p.o. daily.
Echo with preserved ejection fraction and mild to moderate valvular disease.
Original Note:
Today's Communication / Plan
-
[employer] STUDY DIRECTOR�D generator longevity is at 2 months, patient will need generator change coming up as an outpatient
I am waiting for a callback from Dr. Salazar's office at [facility] cardi[facility] [place], [facility], to try and coordinate care for patient
53 minutes spent on [id number] and zox-lhye-im-face time providing care for this patient today
Impression / Plan
-
PCP: Dr. Ayaka Paz
Card: Dr. Salazar
Impression:
Admitted with GI bleed and acute HF 01/16/2025
Anemia/GI/ bleed
Acute on chronic HFpEF
Improved cardiomyopathy, EF 40% in 2015 and improved to 55 to 60% by echo 2023
Persistent atrial fibrillation
status post PVI 2015
Chronic Eliquis OAC
[employer]tronic biventricular pacemaker
Battery longevity 2 months hide device check 01/20/2025
CAD
RCA PCI
Hypertension
Hyperlipidemia
Restless leg syndrome
Acute on chronic renal failure
GERD
MERYL on CKD 3a
Echo 2023, EF 55-60% with a dilated left atrium
RAPHAEL 10/2015: EF 50%, moderate to severe MR
Echo 01/19/25: EF 60 to 65%, mild concentric LVH, mild to moderate MR, mild to moderate aortic regurgitation
Plan:
-Patient came to the ER with an outpatient Hgb of 8.5 and was admitted for GI workup. Cardiology then consulted for acute HF.
-Patient completed colonoscopy on 01/19/2025 and suspected to have diverticular bleeding. Patient was cleared to resume Eliquis on 01/20/2025 AM
-Patient has received 2 units PRBCs this admission. Hgb as low as 7.8 on 01/17/2025 and Hgb improved to 9.2 on my review of labs 01/19/2025
-Eliquis dose decreased to 2.5 mg BID (age 79, Cre 1.7) this admission, but Cre is 1.4 on my review of labs 01/20/25 so previous dose of 5 mg BID can be resumed.
-Consider evaluation for watchman device
-Outpatient dose of aspirin 81 mg daily can be stopped
-Outpatient dose of amiodarone 200 mg daily has been continued. ECG from 01/16/2025 was reviewed by me on 01/19/2025 and the QTc is 620 ms in the setting of V paced complexes
-Patient was given Lasix 60 mg IV x 1 on 01/18/2025. Patient was taking Lasix 40 mg PO daily prior to admission. No additional doses of Lasix IV have been ordered and the outpatient dose of Lasix is on hold. Patient should resume Lasix 40 mg PO
daily upon discharge, orders and discharge instructions updated by me on 01/20/2025
-EF was as low as 40% in 2015, but then improved to 55 to 60% by echo in 2023. Repeat echo this admission was reviewed and summarized above by me, EF is preserved at 60 to 65% with mild to moderate MR mild to moderate aortic regurgitation
-Outpatient dose of Toprol XL 25 mg daily has been continued
-Outpatient dose of spironolactone 25 mg daily is on hold
-Outpatient dose of Jardiance 10 mg daily is on hold, which should be restarted when stable
-Cre as high as 3.5 on admission labs from 01/16/2025, but improved to 1.4 on labs reviewed by me 01/20/2025. Patient with known CKD 3a
-Patient with known paroxysmal A-fib, A-fib burden 0% on device check by me 01/20/2025
-Patient [employer] STUDY DIRECTOR�D interrogated by me 01/20/25, battery longevity is estimated at 2 months. I performed review in [facility], patient was scheduled for a generator change with our office on 10/22/2024, but patient called our office on 08/07/2024 and
canceled the generator change and stated that Dr. Jesus would do it through the [facility] office. It does not appear that the generator change ever occurred based on current battery longevity data and so I now have a call into the [facility] office to find out
what may have happened and if patient can get rescheduled for generator change.
Progress Note - General Helper
Subjective
Date of Service: January 20, 2025
Feels well, says she is going home
Objective
Labs:
01/20/25 06:51
01/20/25 06:51
Labs
Hgb 9.2 g/dL (12.0-16.0) L 01/20/25 06:51
Hct 29.1 % (37.0-47.0) L 01/20/25 06:51
Plt Count 279 10^3/uL (130-400) 01/20/25 06:51
Sodium 139 mmol/L (135-145) 01/20/25 06:51
Potassium 4.1 mmol/L (3.5-5.1) 01/20/25 06:51
BUN 20 mg/dl (7-17) H 01/20/25 06:51
Creatinine 1.4 mg/dL (0.6-1.0) H 01/20/25 06:51
Glucose 89 mg/dl (70-99) 01/20/25 06:51
Vital Signs and I&O:
Vital Signs
Temp Pulse Resp BP Pulse Ox
98.5 F 94 18 129/62 99
01/20/25 11:05 01/20/25 11:05 01/20/25 11:05 01/20/25 11:05 01/20/25 11:05
Vital Signs
Temp Pulse Resp BP Pulse Ox
98.5 F 94 18 129/62 99
01/20/25 11:05 01/20/25 11:05 01/20/25 11:05 01/20/25 11:05 01/20/25 11:05
Intake & Output
01/18/25 01/19/25 01/20/25 01/21/25
06:59 06:59 06:59 06:59
Intake Total 3030 / 3030 840 / 840 720 / 720
Output Total 550 / 550
Balance 2480 / 2480 840 / 840 720 / 720
Physical Exam
Physical Exam
GEN: NAD. AAOx3
HEENT: EOMI, MMM
LUNGS: RA. No audible wheeze
CV: V paced on tele.
--- NOTE | 2025-01-20 18:46 | W.DCSUMMARY ---
Addendum entered and electronically signed by Kelli Bar MD, Resident 01/22/25 16:28:
Discharge date for Samaria Boyle was on the 01/20/2025.
Addendum entered and electronically signed by Vicente Hodge MD 01/21/25 23:22:
Read, reviewed, and agree. See same day progress note for additional details.
Fadi Hodge MD
Original Note:
Documented by User: Kelli Bar MD, Resident 01/21/25 20:23
Discharge Summary
Discharge Data
Date of Admission: 01/16/25
Date of Discharge: 01/21/25
-
Pending Results: No
Hospital Course
Discharging Physician : Dr. Vicente Hodge, Dr. Kelli Bar
Disposition : Home
Primary care physician : Ayaka Paz
Principal Discharge diagnosis : Anemia secondary GI bleeding
Chronic Discharge diagnosis :
Acute hypoxemic resp failure
HFimpEF
Atrial fibrillation
Hyperlipidemia
CKD 3b
Hospital Course :
The patient is an 79-year-old female with a history of HFrEF, CAD s/p PCI, atrial fibrillation on Eliquis s/p PVI, AV block s/p PPM, CKD stage 3, prior CVA, hypertension, and dyslipidemia. She was admitted on 01/16/25 with generalized weakness,
anemia, and acute kidney injury. Initial labs showed hemoglobin 8.3 g/dL (baseline ~10�11) and creatinine 3.5 mg/dL (baseline 1.5). Stool was heme positive. CT abdomen/pelvis without contrast demonstrated diverticulosis without inflammation, a
moderate hiatal hernia, and no hydronephrosis. ECG showed atrial paced rhythm without ischemic changes. She was started on IV pantoprazole and IV fluids, and Eliquis was held.
During hospitalization, she received a total of 2 units PRBC for symptomatic anemia. She was also started on IV iron. Barcenas output yellow and without signs of bleeding. GI was consulted, and colonoscopy scheduled but patient experienced SOB in the
morning and Chest Xray showed signs of pulmonary congestion. Acute hypoxemic respiratory failure. Requiring 4 L O2. Decompensated HFpEF due to IV fluids and blood products. Wean oxygen for SpO2 goal >90%. Colonoscopy was rescheduled for next day
given SOB and probable CHF from volume. Mg Cirate used for colonoscopy prep. Patient's face turned red with Mg Citrate. Rest of colonoscopy prep changed to Miralax. Colonoscopy ultimately revealed no active bleeding, with diverticulosis considered
the most likely source. There was no further bleeding, and hemoglobin stabilized at 9.2 g/dL at discharge.
Oxygen was weaned, and she was stable on room air prior to discharge.
Her MERYL on CKD3 improved with supportive care and avoidance of nephrotoxins, suspected prerenal etiology with bleeding with creatinine trending down from 3.5 to 1.8 mg/dL.
Anticoagulation: Eliquis was held during initial evaluation for bleeding but was restarted on 01/19 per cardiology recommendation. Aspirin discontinued. [employer]EDGE [employer]AT [employer]INEER-D is at end-of-life. Staff Electronic Warfare Officer will discuss with Dr. Salazar's office regarding generator
change and discussed this with patient as well.
By discharge on 01/20/25, the patient was clinically stable with hemoglobin 9.2 g/dL, improving renal function, and resolution of acute CHF.
Asked pt to schedule follow-up with gastroenterology, cardiology, and urology for further evaluation of diverticular disease, anticoagulation management, hematuria, and device monitoring. Dr. Berry will contact patient with pathology report when
available
Important imaging findings :
Abdomen/pelvic CT
-No renal calculus or hydronephrosis to indicate obstructive uropathy. No suspicious renal mass identified given limitations from lack of intravenous contrast.
-Minor diverticulosis without acute diverticulitis. No bowel obstruction.
-Moderate hiatal hernia. Peribronchial thickening and traction bronchiectasis at the lung bases. Progressive left atrial enlargement.
Chest Xray
1. Mild to moderate acute interstitial and alveolar cardiogenic pulmonary edema.
2. Severe calcific atherosclerotic plaque in the thoracic aorta.
3. Mild cardiomegaly.
4. Left-sided biventricular cardiac pacemaker in place.
Peripheral Vascular Ultrasound
-No evidence of deep venous thrombosis bilaterally.
ECHO
1. Mild concentric left ventricular hypertrophy with normal cavity size and preserved systolic function, ejection fraction 60-65%.
2. Mitral annular calcification, thickened mitral leaflets, mild to moderate mitral regurgitation and severely dilated left atrium.
3. Aortic sclerosis with mild to moderate aortic regurgitation.
4. Normal right heart with pacing wires identified, pulmonary artery systolic pressure 31 m of mercury.
5. A transesophageal echo in October 2015 showed an EF of 50% with moderate to severe mitral regurgitation, dilated left atrium and aortic plaque.
Procedure findings : colonoscopy
-A 3 mm polyp was found in the ascending colon. The polyp was
sessile. The polyp was removed with a cold snare. Resection and
retrieval were complete.
- A 5 mm polyp was found in the descending colon. The polyp was
sessile. The polyp was removed with a cold snare. Resection and
retrieval were complete.
- Multiple medium-mouthed diverticula were found in the transverse
colon, descending colon and sigmoid colon.
- Internal hemorrhoids were found during retroflexion. The
hemorrhoids were medium-sized.
Discharge Plan
-
Patient Disposition: Home (Routine Discharge)
Discharge Diagnosis/Procedures: acute blood loss anemia/Lower GI bleed
Acute hypoxemic resp failure
HFimpEF
Atrial fibrillation
Hyperlipidemia
CKD 3b
Condition: Good
Diet: 2 Gram Sodium and Low Residue
Additional Diets: low residue diet 2 weeks then advance to high fiber by 4 weeks
Activity: No restrictions
Driving Restrictions: As prior to admission
Bathing Restrictions: None
Specialty Instructions: Weigh Daily- Call MD for wt gain/loss 3 lbs overnight/5 lbs in 1 week
Activity Restrictions/Additional Instructions:
call 1-2 weeks to review path-- OP follows with Dr. Dunbar
Follow up within 1 week with your PCP
Follow up with GI as discussed
Referrals:
Salvatore Dunbar MD [Non-Admitting Privileges, Internal Medicine]
Referral Note: follow up 2-3 months for general GI care
Chris Berry MD [Active, Gastroenterology]
Referral Note: call office 1-2 weeks to review pathology of colon polyps
Scot Salazar MD [Active, Cardiology]
Referral Note: We called Dr. Salazar's office about battery longevity for your pacemaker/defibrillator and are waiting to hear back, you will need to see their office and be set up for generator change in the next few weeks.
Ayaka Paz MD [Family Provider, Family Practice]
Additional Discharge Medication Instructions: STOP taking aspirin 81 mg daily
Continue your usual dose of Eliquis 2.5 mg twice a day
Take Iron supplement every day follow up with your PCP regarding your Iron deficiency
Prescriptions:
New
ferrous sulfate 325 mg (65 mg iron) tablet
325 mg PO DAILY Qty: 30 0RF
Eliquis 5 mg tablet
5 mg PO BID Qty: 60 11RF
Continued
furosemide [Lasix] 40 mg Tablet
40 mg PO DAILY Qty: 0 0RF
atorvastatin 40 MG tablet
40 mg PO HS Qty: 0 0RF
atorvastatin [Lipitor] 40 mg Tablet
40 mg PO DAILY Qty: 0 0RF
amiodarone 200 mg Tablet
200 mg PO HS Qty: 0 0RF
cyanocobalamin (vitamin B-12) 1,000 mcg Tablet
1,000 mcg PO DAILY Qty: 0 0RF
spironolactone 25 mg Tablet
25 mg PO QPM Qty: 0 0RF
ascorbic acid (vitamin C) [Vitamin C] 500 MG tablet
500 mg PO DAILY Qty: 0 0RF
pantoprazole 40 mg Tablet,Delayed Release (Dr/Ec)
40 mg PO BID Qty: 0 0RF
metoprolol succinate 25 MG tablet extended release 24 hr
25 mg PO QPM Qty: 0 0RF
oxybutynin chloride 5 mg Tablet
5 mg PO DAILY Qty: 0 0RF
ezetimibe [Zetia] 10 mg Tablet
10 mg PO DAILY Qty: 0 0RF
pregabalin 25 mg Capsule
25 mg PO BID Qty: 0 0RF
calcium carbonate-vitamin D3 [Calcium 500 + D] 500 mg-10 mcg (400 unit) Tablet
1 tab PO DAILY Qty: 0 0RF
omega 8-vfx-sma-fish oil 1 EACH capsule
1 cap PO DAILY Qty: 0 0RF
Jardiance 10 mg Tablet
10 mg PO DAILY Qty: 0 0RF
Discontinued
Eliquis 5 MG tablet
5 mg PO BID Qty: 1 0RF
aspirin 81 mg Tablet,Delayed Release (Dr/Ec)
81 mg PO DAILY
Discharge Orders:
Discharge Patient (As Directed); Ordered 01/20/25
Ordered By: Kelli Bar
Discharge Date and Time
Discharge Date/Time: 01/20/25 14:59
Print Language: TOGOLESE

Documented by User: Vicente Hodge MD 01/21/25 23:21
Discharge Summary
Discharge Data
Date of Admission: 01/16/25
Date of Discharge: 01/21/25
Discharge Plan
-
Patient Disposition: Home (Routine Discharge)
Discharge Diagnosis/Procedures: acute blood loss anemia/Lower GI bleed
Acute hypoxemic resp failure
HFimpEF
Atrial fibrillation
Hyperlipidemia
CKD 3b
Condition: Good
Diet: 2 Gram Sodium and Low Residue
Additional Diets: low residue diet 2 weeks then advance to high fiber by 4 weeks
Activity: No restrictions
Driving Restrictions: As prior to admission
Bathing Restrictions: None
Specialty Instructions: Weigh Daily- Call MD for wt gain/loss 3 lbs overnight/5 lbs in 1 week
Activity Restrictions/Additional Instructions:
call 1-2 weeks to review path-- OP follows with Dr. Dunbar
Follow up within 1 week with your PCP
Follow up with GI as discussed
Referrals:
Salvatore Dunbar MD [Non-Admitting Privileges, Internal Medicine]
Referral Note: follow up 2-3 months for general GI care
Chris Berry MD [Active, Gastroenterology]
Referral Note: call office 1-2 weeks to review pathology of colon polyps
Scot Salazar MD [Active, Cardiology]
Referral Note: We called Dr. Salazar's office about battery longevity for your pacemaker/defibrillator and are waiting to hear back, you will need to see their office and be set up for generator change in the next few weeks.
Ayaka Paz MD [Family Provider, Family Practice]
Additional Discharge Medication Instructions: STOP taking aspirin 81 mg daily
Continue your usual dose of Eliquis 2.5 mg twice a day
Take Iron supplement every day follow up with your PCP regarding your Iron deficiency
Prescriptions:
New
ferrous sulfate 325 mg (65 mg iron) tablet
325 mg PO DAILY Qty: 30 0RF
Eliquis 5 mg tablet
5 mg PO BID Qty: 60 11RF
Continued
furosemide [Lasix] 40 mg Tablet
40 mg PO DAILY Qty: 0 0RF
atorvastatin 40 MG tablet
40 mg PO HS Qty: 0 0RF
atorvastatin [Lipitor] 40 mg Tablet
40 mg PO DAILY Qty: 0 0RF
amiodarone 200 mg Tablet
200 mg PO HS Qty: 0 0RF
cyanocobalamin (vitamin B-12) 1,000 mcg Tablet
1,000 mcg PO DAILY Qty: 0 0RF
spironolactone 25 mg Tablet
25 mg PO QPM Qty: 0 0RF
ascorbic acid (vitamin C) [Vitamin C] 500 MG tablet
500 mg PO DAILY Qty: 0 0RF
pantoprazole 40 mg Tablet,Delayed Release (Dr/Ec)
40 mg PO BID Qty: 0 0RF
metoprolol succinate 25 MG tablet extended release 24 hr
25 mg PO QPM Qty: 0 0RF
oxybutynin chloride 5 mg Tablet
5 mg PO DAILY Qty: 0 0RF
ezetimibe [Zetia] 10 mg Tablet
10 mg PO DAILY Qty: 0 0RF
pregabalin 25 mg Capsule
25 mg PO BID Qty: 0 0RF
calcium carbonate-vitamin D3 [Calcium 500 + D] 500 mg-10 mcg (400 unit) Tablet
1 tab PO DAILY Qty: 0 0RF
omega 5-pkf-qse-fish oil 1 EACH capsule
1 cap PO DAILY Qty: 0 0RF
Jardiance 10 mg Tablet
10 mg PO DAILY Qty: 0 0RF
Discontinued
Eliquis 5 MG tablet
5 mg PO BID Qty: 1 0RF
aspirin 81 mg Tablet,Delayed Release (Dr/Ec)
81 mg PO DAILY
Discharge Orders:
Discharge Patient (As Directed); Ordered 01/20/25
Ordered By: Kelli Bar
Discharge Date and Time
Discharge Date/Time: 01/20/25 14:59
Print Language: TOGOLESE
== END 2025-01-20 14:59 | disposition home or self-care (01) | DRG 377 ==
LOC: 4 EAST ACU 17:27
PROVIDERS: Nurse Practitioner Family; ADMITTING PHYSICIAN Internal Medicine; ATTENDING PHYSICIAN Family Medicine; CONSULT PHYSICIAN Internal Medicine Cardiovascular Disease; CONSULT PHYSICIAN Specialist; EMERGENCY PHYSICIAN Emergency Medicine; FAMILY PHYSICIAN Family Medicine
PROC: 30233N1 Transfusion of Nonautologous Red Blood Cells into Peripheral Vein, Percutaneous Approach (ICD-10-PCS; 2025-01-16)
PROC: 0DBK8ZZ Excision of Ascending Colon, Via Natural or Artificial Opening Endoscopic (ICD-10-PCS; 2025-01-19)
PROC: 0DBM8ZZ Excision of Descending Colon, Via Natural or Artificial Opening Endoscopic (ICD-10-PCS; 2025-01-19)
DX: K57.31 Diverticulosis of large intestine without perforation or abscess with bleeding (principal); I50.43 Acute on chronic combined systolic (congestive) and diastolic (congestive) heart failure; J96.01 Acute respiratory failure with hypoxia; D62 Acute posthemorrhagic anemia; I48.19 Other persistent atrial fibrillation; I13.0 Hypertensive heart and chronic kidney disease with heart failure and stage 1 through stage 4 chronic kidney disease, or unspecified chronic kidney disease; N17.9 Acute kidney failure, unspecified; D12.4 Benign neoplasm of descending colon; D12.2 Benign neoplasm of ascending colon; K64.8 Other hemorrhoids; N18.32 Chronic kidney disease, stage 3b; K44.9 Diaphragmatic hernia without obstruction or gangrene; J47.9 Bronchiectasis, uncomplicated; Z95.0 Presence of cardiac pacemaker; I34.0 Nonrheumatic mitral (valve) insufficiency; I34.81 Nonrheumatic mitral (valve) annulus calcification; I70.0 Atherosclerosis of aorta; I35.1 Nonrheumatic aortic (valve) insufficiency; R31.0 Gross hematuria; Z79.84 Long term (current) use of oral hypoglycemic drugs; Z79.01 Long term (current) use of anticoagulants; Z95.5 Presence of coronary angioplasty implant and graft; Z88.5 Allergy status to narcotic agent; Z91.040 Latex allergy status; Z91.041 Radiographic dye allergy status; Z88.0 Allergy status to penicillin; Z79.82 Long term (current) use of aspirin; Z79.899 Other long term (current) drug therapy; I25.10 Atherosclerotic heart disease of native coronary artery without angina pectoris; Z86.73 Personal history of transient ischemic attack (TIA), and cerebral infarction without residual deficits; G25.81 Restless legs syndrome; Z66 Do not resuscitate; E78.00 Pure hypercholesterolemia, unspecified; K21.9 Gastro-esophageal reflux disease without esophagitis; Z80.0 Family history of malignant neoplasm of digestive organs; Z96.643 Presence of artificial hip joint, bilateral
CPT/HCPCS: 71045; 74176; 80048; 80053; 81003; 81015; 82570; 82607; 82728; 82746; 82962; 83540; 83550; 83880; 84300; 85014; 85018; 85025; 85027; 85379; 86850; 86900; 86901; 86920; 87086; 88305; 93005; 93306; 93970; 96361; 96374; 97162; 99285; J2916; P9016

== ENCOUNTER → 2025-02-25 11:54 | Outpatient (REF) | payer MEDICARE, SELFPAY ==
[2025-02-25 18:48] LABS: Urine Character Clear (Clear)
== END ==
LOC: CLAB 11:54
PROVIDERS: ATTENDING PHYSICIAN Specialist
DX: R31.0 Gross hematuria (principal)
CPT/HCPCS: 81003

== ENCOUNTER 2025-04-01 05:59 | Day surgery (SDC) | payer MEDICARE, SELFPAY ==
[2025-04-01 06:46] VITALS: BP 124/64
[2025-04-01 06:50] VITALS: BMI 31.1
--- NOTE | 2025-04-01 07:03 | ITS.CL.PACE ---
[facility] - Pacemaker Implant
Pacemaker Implant
Procedure Report:
BiV / ICD GENERATOR REMOVAL / IMPLANT REPORT
Date of Procedure: April 01, 2025
Primary Care Physician: Dr. Ayaka Paz
Primary Orthopaedic Surgeon: Dr. Rafa Salazar
PROCEDURES:
1. Removal of BiV Generator
2. BiV Generator Implant
INDICATION FOR PROCEDURE:
1. ICD at [facility]
2. Current CHF Class 1 and patient is on guideline directed medical therapy at maximal tolerated dose for greater 3 months
3. Diagnosis of CHF initially made over 9 months ago
4. Life expectancy is greater than one year
5. Primary prevention at initial implant
6. Primary prevention at this generator change
7. Explanted device has delivered appropriate therapy: No
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 She also has a
history of atrial fibrillation status post ablation in 2016 and on Eliquis which was held for this procedure. She recently had an episode of heart failure in October of this year wherein she was admitted to [facility] and underwent cardiac
catheterization which showed no new obstructive coronary disease with a widely patent LAD stent. Echocardiography at that time showed LV systolic function to be 60 to 65% with no regional wall motion abnormalities. She subsequently had a
diverticular bleed and was admitted to [facility]. She has now been clinically stable and is referred for generator change. All lead data is stable. She is dependent in the RV but does have a escape rhythm.
ANTIBIOTIC: Ancef 2 g IV
SEDATION: Conscious sedation by anesthesia staff.
DESCRIPTION OF PROCEDURE: 'Time-out' was called and confirmed. The patient was prepped and draped in sterile fashion. Lidocaine with epinephrine was used for local anesthesia. An incision was made along the previous incision and the device and
leads were carefully dissected from the pocket. Hemostasis was obtained with electrocautery. The leads were from the device header and tested using an external analyzer. The pocket was liberally irrigated with antibiotic solution. Once
testing (see below) showed adequate and stable function, the leads were connected to the generator header and the leads and generator were placed within the pocket. The pocket was closed in the typical fashion.
EXPLANTED ICD: Medtronic Consulta CRYPTOGRAPHIC VULNERABILITY ANALYST�P US MR serial number [id number] implanted: 03/27/2016
IMPLANTS:
BiV: Medtronic model W1DR01 serial number [id number], Left Pectoral
EXISTING LEADS:
RA lead Medtronic 5076�45, SN: [id number] implanted: 07/21/2015
RV lead Medtronic 5076�52, SN: [id number] implanted: 07/21/2015
LV lead Medtronic 4296-88, SN: [id number] implanted: 03/27/2016
DEVICE TESTING
Sensing: RA 1.3 mV, RV [PACED]
Capture: RA 0.75 V@ 0.4 ms, RV 1.25 V@ 0.4 ms, LV 2.25 V@ 0.4ms
Ohms: RA 14, RV 437, LV 684
FINAL PROGRAMMING:
Lio Pacing: DDDR 70-130 ppm
COMPLICATIONS: None
CONCLUSIONS:
1. Explant of BiV generator at [facility]
2. Successful implant of BiV generator.
3. In-office wound check on Sunday and device check as scheduled. Hold Eliquis until wound check.
Copy to: Dr. Ayaka Paz
[2025-04-01 07:08] LABS: Glucose - Point of Care 94 mg/dl (70-99)
[2025-04-01 08:35] VITALS: BP 123/55
[2025-04-01 08:50] VITALS: BP 106/57
[2025-04-01 09:06] VITALS: BP 106/52
== END 2025-04-01 09:22 | disposition home or self-care (01) ==
LOC: CATH 05:59
PROVIDERS: ATTENDING PHYSICIAN Internal Medicine Interventional Cardiology; FAMILY PHYSICIAN Family Medicine; OTHER PHYSICIAN Internal Medicine Cardiovascular Disease
DX: Z45.010 Encounter for checking and testing of cardiac pacemaker pulse generator [battery] (principal); Z95.5 Presence of coronary angioplasty implant and graft; Z79.899 Other long term (current) drug therapy; Z79.84 Long term (current) use of oral hypoglycemic drugs; I48.19 Other persistent atrial fibrillation; I50.32 Chronic diastolic (congestive) heart failure
CPT/HCPCS: 33229; 82962; C2621